=== PATIENT | female | born 1975 | race Caucasian/White ===

== ENCOUNTER 2024-05-23 08:36 | Outpatient (AMB) | payer OTHER, SELFPAY ==
--- NOTE | 2024-05-23 08:40 | A.OFFPC_ITS ---
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 Static Balancer Required: No Is last menstrual period known: Yes Last menstrual period: 03/13/24 Post menopausal: No Patient : No Allergies No Known Allergies Allergy (Verified 05/23/24 09:01) Medication List - Last Reconciled 05/23/24 by Deuce Dey CNP No Known Home Meds Tobacco use date assessed: 05/23/24 Dental Screening Dental Screen Date: 05/23/24 Did you have a dental visit in the last 12 months?: Yes Did you have a dental problem in the last 6 months where you did not have access to dental care?: No Was dental information given to patient?: Patient has dentist HPI HPI Comments History of Present Illness Details New patient Prior PCP:?Shanice Romo Last office visit/CPE: About 3 years Acute issue(s): Hyperopia -Corrected with reading glasses She is not on prescription medications Her anxiety has been controlled; she has never been on psychotropic medications. She generally eats and sleeps well. No routine exercise PMHx: Anxiety, IBS, diminished left hearing SurgHx: None FHx: Mom: DM, anxiety. Sister: colon cancer SocHx: Nonsmoker. Drink 3-4 beers/ciders on weekends. No recreational drugs Last eye exam was a month ago at [facility]. She will sign a release for her PCP to obtain record Last mammogram was about 5 years ago Last pap smear test was about 8 years ago Last colonoscopy was 10 years ago Last tetanus vaccine was about 10 years ago [facility] Medical History (Updated 05/23/24 @ 09:37 by Deuce Dey CNP) HPV (human papilloma virus) anogenital infection Anxiety History of IBS Family History (Updated 05/23/24 @ 08:55 by Soraya Miles) Mother Diabetes Family/Other Colon cancer Social History Housing: Apartment Patient Tobacco Use Status: Never used Tobacco e-Cigarette/Vaping Use: Never Used Second Hand Smoke Exposure: No service: No Current occupational status: employed 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 1. Little interest or pleasure in doing things: not at all 2. Feeling down, depressed, or hopeless: not at all 3. Trouble falling or staying asleep, or sleeping too much: not at all 4. Feeling tired or having little energy: nearly every day 5. Poor appetite or overeating: not at all 6. Feeling bad about yourself - or that you are a failure or have let yourself or your family down: several days 7. Trouble concentrating on things, such as reading the newspaper or watching television: not at all 8. Moving or speaking so slowly that other people could have noticed. Or the opposite - being so fidgety or restless that you have been moving around a lot more than usual: not at all 9. Thoughts that you would be better off or of hurting yourself in some way: not at all Total score: 4 Depression Screening Interpretation: Negative Depression Screening Done: Yes 50927 - PHQ-9 Billing: Yes Source: Developed by Drs. Chad Valerio, Michelle Sanches, Scotty Means and colleagues, with an educational avril from [employer]. Thrive Questionnaire Date Thrive assessed: 05/23/24 I am a: Patient What is your living situation today?: I have a steady place to live Within the past 12 months, did the food you bought not last and you didn't have the money to get more?: Sometimes True Within the past 12 months, did you worry whether your food would run out before you got money to buy more?: Sometimes True Do you have trouble paying for medicines?: No Do you have trouble getting transportation to medical appointments?: No Do you have trouble paying your heating and electricity bill?: No Do you have trouble taking care of your child, family member or friend?: No Do you have trouble with day-to-day activities such as bathing, preparing meals, shopping, managing finances, etc.?: No Are you currently unemployed and looking for a job?: No Are you interested in more education?: No Please select the resources that you would like help with: None Currently or been in a relationship where the following occur: No concerns reported THRIVE Score: 2 AUDIT C Alcohol Use Questionnaire (AUDIT-C) 1. How often do you have a drink containing alcohol?: 2-3 times a week 2. How many drinks containing alcohol do you have on a typical day when you are drinking?: 1 or 2 3. How often do you have six or more drinks on one occasion?: Never Total Score: 3 Score Reviewed/Action Taken: Yes FRANCISCO-7 AMB Questionnaire FRANCISCO-7 Date FRANCISCO - 7 assessed: 05/23/24 Feeling nervous, anxious, or on edge: 1 = Several days Not being able to stop or control worryin = Several days Worrying too much about different things: 1 = Several days Trouble relaxin = Not at all Being so restless that it is hard to sit still: 0 = Not at all Becoming easily annoyed or irritable: 0 = Not at all Feeling afraid as if something awful might happen: 0 = Not at all Total FRANCISCO-7 score (0-4 normal; 5-9 mild; 10-14 moderate; 15-21 severe): 3 Source: Developed by Drs. Chad Valerio, Michelle Sanches, Scotty Means and colleagues, with an educational avril from [employer]. FRANCISCO-7 Assessment Billing FRANCISCO-7 Assessment Tool: FRANCISCO-7 Assessment 79486 Review of Systems Const Details: Denies chills, Denies fatigue, Denies fever(s), Denies headache(s) and Denies weakness HEENT Denies change in vision, Denies dizziness, Denies headache(s), Denies hearing loss, Denies nasal congestion, Denies sinus pain, Denies sinus pressure and Denies sore throat Card Denies chest pain, Denies lightheadedness, Denies dyspnea and Denies other (palpitations) Resp Denies cough, Denies dyspnea and Denies wheezing GI Denies abdominal pain, Denies melena, Denies hematochezia, Denies change in bowel habits, Denies dyspepsia and Denies nausea Denies hematuria and Denies dysuria Musc Denies abnormal gait, Denies myalgias, Denies arthralgias, Denies numbness and Denies tingling Skin/Breast Denies rash, Denies unusual bruising and Denies wounds Neuro Denies abnormal gait, Denies dizziness, Denies headache(s), Denies memory loss, Denies numbness, Denies Sensory deficit (Neuro), Denies tingling and Denies weakness Psych Denies anxiety, Denies depression and Denies memory loss Endo Denies cold intolerance, Denies fatigue, Denies heat intolerance, Denies polydipsia and Denies polyuria Humphrey/Lymph Denies easy bleeding and Denies easy bruising Aller/Immun Denies wheezing Physical exam (Primary Care) Vital Signs: Last Vital Signs Temp 97.1 F 05/23/24 08:46 Pulse 71 05/23/24 08:46 Resp 16 05/23/24 08:46 BP 112/70 05/23/24 08:46 Pulse Ox 99 05/23/24 08:46 Oxygen Delivery Method Room Air 05/23/24 08:46 BMI result Body Mass Index 23.8 Tobacco/Smoking Status: Tobacco use Status Tobacco use date assessed 05/23/24 05/23/24 08:46 Patient Tobacco Use Status Never used Tobacco 05/23/24 08:46 e-Cigarette/Vaping Use Never Used 05/23/24 08:46 PHQ-9: PHQ-9 Score PHQ-9: Total score 4 05/23/24 09:06 Depression Screening Interpretation: Negative Thrive Assessment: Date of Thrive Assessment Date Thrive assessed 05/23/24 05/23/24 08:58 Currently or been in a relationship where the following occur: No concerns reported Const Other: General: no acute distress, well developed, alert and awake Nutritional Appearance: well nourished Orientation/consciousness: patient oriented x3 HENMT Head: Yes normocephalic and Yes atraumatic Ears: hearing grossly normal bilaterally and TM's normal bilaterally General nose exam: Normal external nose present and Normal nares present Mouth: Normal oral and palatal mucosa present and moist mucous membranes Teeth and gingiva: dentition normal Throat: Yes oropharynx normal Eyes Pupils: Equal, round and reactive pupils present and Pupil accommodation reflex normal EOM: EOMs intact bilaterally Neck Neck: Yes normal visual inspection, Yes no lymphadenopathy and Yes trachea midline Thyroid: Thyroid normal Carotids: no bruits Lymphatic: no lymphadenopathy noted Chest Chest palpation & inspection: normal inspection of the chest Resp Effort & Inspection: normal respiratory effort Auscultation: clear to auscultation bilaterally Cardio Rate: regular rate Rhythm: regular rhythm Heart sounds: S1 normal heart sound present, S2 normal heart sound present, no gallops, no murmurs and no rubs Bruits: no abdominal aortic bruits and no carotid bruits GI Palpation (GI): No Abdominal aortic bruit present, Soft to palpation, nontender, No hepatosplenomegaly present and No Rebound tenderness present Auscultation: normal bowel sounds General: Yes no CVA tenderness Back/Spine/Pelvis Back: no CVA tenderness Cervical Spine: cervical ROM normal and No Cervical spine tenderness Thoracic/Lumbar Spine: thoraco-lumbar ROM normal, No pain with thoraco-lumbar ROM, No thoracic spinal tenderness and No lumbar spinal tenderness Skin General: warm and dry. Normal skin color. Normal skin turgor Lesions: no lesions Rashes: no rashes Trauma: no lacerations or abrasions Wounds: no wounds Nails: normal Neuro General: patient oriented x3, gait normal and CN's II-XI intact bilaterally Cranial nerves: Yes Equal, round and reactive pupils present Cognition (Neuro): normal cognition Gait exam (Neuro): Normal gait present Motor exam (neuro): 5/5 motor strength present throughout Sensory Exam: No Sensory deficit (Neuro) Deep tendon reflexes (DTR's): Right patellar reflex intensity grade: 2+ and Left patellar reflex intensity grade: 2+ Extrem General: Yes normal to inspection, No edema and No calf tenderness Psych Appearance: grossly normal Affect: normal affect Attitude: cooperative Thought process: Normal thought process present Immunizations Boostrix Tdap 2.5 Lf unit-8 mcg-5 Lf/0.5 mL intramuscular syringe Performing Provider: Deuce Dey CNP Performing Location: [facility] Administered by: Leslie Casanova RN on 05/23/24 09:39 Dose Route Admin Location Dispensed Lot Number Expiration Date [facility] Rink Rat 0.5 mL IM Right Deltoid 0.5 mL [id number] 06/05/26 [id number] [employer] VIS Given Date VIS Provided VIS Publication Date 05/23/24 Single Vaccine 21 Eligibility Eligibility Date Funding Source Not [facility] Eligible 05/23/24 Private Assessment and Plan Assessment & Plan (1) Normal physical examination, routine: Code(s): Z00.00 - Encounter for general adult medical examination without abnormal findings Plan: No significant physical restrictions or limitations noted Healthy diet and routine exercise encouraged Advised to get lab work done and follow-up for telehealth visit in 2-3 weeks for labs review Return with symptoms or concerns Verbalized understanding and agreed with the treatment plan (2) Anxiety: Code(s): F41.9 - Anxiety disorder, unspecified Plan: Controlled Never been on psychotropic medications (3) History of IBS: Code(s): Z87.19 - Personal history of other diseases of the digestive system Plan: Controlled (4) Pap smear for cervical cancer screening: Code(s): Z12.4 - Encounter for screening for malignant neoplasm of cervix Plan: Last pap smear test was about 8 year 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 (5) Breast cancer screening by mammogram: Code(s): Z12.31 - Encounter for screening mammogram for malignant neoplasm of breast Plan: Last mammogram was about 5 years ago Mammogram ordered (6) Colon cancer screening: Code(s): Z12.11 - Encounter for screening for malignant neoplasm of colon Plan: Last colonoscopy was 10 years ago Referred to [facility] gastroenterology for a colonoscopy (7) Vaccine for tetanus toxoid: Code(s): Z23 - Encounter for immunization Plan: Last tetanus vaccine was about 10 years ago Tetanus vaccine administered by the nurse today (8) Laboratory tests ordered as part of a complete physical exam (CPE): Code(s): Z00.00 - Encounter for general adult medical examination without abnormal findings Plan: Fasting labs ordered as part of a complete physical exam. Advised to fast for at least 10 hours before getting labs drawn. May drink water Verbalized understanding and agreed with treatment plan. Orders: Orders Complete Blood Count Auto Diff Today Z00.00 - Encounter for general adult medical examination without abnormal findings Comprehensive [place]. Panel Fast Today Z00.00 - Encounter for general adult medical examination without abnormal findings TSH reflex Free T4 Today Z00.00 - Encounter for general adult medical examination without abnormal findings UA CC w/rflx Micro + Cult Today Z00.00 - Encounter for general adult medical examination without abnormal findings MM screening mammo BI Today Z12.31 - Encounter for screening mammogram for malignant neoplasm of breast Lipid Panel Today Z00.00 - Encounter for general adult medical examination without abnormal findings Microalbumin, Random (w Creat) Today Z00.00 - Encounter for general adult medical examination without abnormal findings Referrals REFERENCE DATA EXPERT Referral Z12.11 - Encounter for screening for malignant neoplasm of colon Gastroenterology Referral Z12.11 - Encounter for screening for malignant neoplasm of colon Coding Level of Care Code New Pt Prev Care 40-64y(66337) Diagnoses Normal physical examination, routine Z00.00 Anxiety F41.9 History of IBS Z87.19 Pap smear for cervical cancer screening Z12.4 Breast cancer screening by mammogram Z12.31 Colon cancer screening Z12.11 Vaccine for tetanus toxoid Z23 Laboratory tests ordered as part of a complete physical exam (CPE) Z00.00 Additional Codes FRANCISCO-7 Assessment Billing - FRANCISCO-7 Assessment Tool: FRANCISCO-7 Assessment 47501 ([id number])
[2024-05-23 08:46] VITALS: BP 112/70; PULSE 71; RESP 16; TEMP 36.2; O2SAT 99; BMI 23.8
== END 2024-05-23 09:37 | disposition home or self-care (01) ==
PROVIDERS: Visit Provider Nurse Practitioner Family
DX: Z00.00 Encounter for general adult medical examination without abnormal findings (principal); F41.9 Anxiety disorder, unspecified; Z87.19 Personal history of other diseases of the digestive system; Z12.4 Encounter for screening for malignant neoplasm of cervix; Z12.31 Encounter for screening mammogram for malignant neoplasm of breast; Z12.11 Encounter for screening for malignant neoplasm of colon; Z23 Encounter for immunization

== ENCOUNTER → 2024-05-23 08:36 | Outpatient (BNVA) | payer OTHER, SELFPAY | PROVIDERS: Visit Provider Nurse Practitioner Family | DX: Z00.01 Encounter for general adult medical examination with abnormal findings (principal); Z23 Encounter for immunization; F41.9 Anxiety disorder, unspecified; Z87.19 Personal history of other diseases of the digestive system | CPT/HCPCS: 90471; 90715; 96127; 99386 ==

== ENCOUNTER 2024-05-28 07:51 | Outpatient (REF) | payer OTHER, SELFPAY ==
[2024-05-28 10:59] LABS: MANUAL DIFF FLAG NO
[2024-05-28 11:12] LABS: Appearance Urine Clear; Color Urine Yellow; Glucose Urine UA Negative (Negative); Leukocyte Esterase Urine Negative (Negative); Nitrite Urine Negative (Negative); Urine Blood Negative (Negative); Urine Ketones Negative (Negative); Urine Protein Negative (Neg-Trace)
[2024-05-28 11:22] LABS: Basophils Percent Auto 0.6 % (0-2); Eosinophils Absolute Auto 0.1 X10*3/uL (0.0-0.4); Eosinophils Percent Auto 2.3 % (0-4); Hematocrit 37.4 % (37.0-47.0); Hemoglobin 12.4 g/dl (12.0-16.0); Lymphocytes Absolute Auto 1.3 X10*3/uL (1.2-4.9); Lymphocytes Percent Auto 25.4 % (20-40); Mean Corpuscular HGB Conc 33.2 g/dl (31.0-35.0); Mean Corpuscular Hemoglobin 30.2 pg (27.0-33.0); Mean Platelet Volume 9.6 fL (9.4-12.3); Monocytes Absolute Auto 0.4 X10*3/uL (0.1-1.2); Monocytes Percent Auto 7.9 % (2-11); Neutrophils Absolute Auto 3.3 x10*3/uL (2.0-8.3); Neutrophils Percent Auto 63.8 % (45-73); Platelet Count 377 X10*3/uL (160-400); Red Blood Count 4.11 X10*6/uL (4.20-5.50); Red Cell Distribution Width 11.8 % (11.0-16.0); White Blood Count 5.2 X10*3/uL (4.8-10.8)
[2024-05-28 11:28] LABS: Alanine Aminotransferase 33 U/L (0-31); Albumin Level 4.1 g/dL (3.5-5.0); Alkaline Phosphatase 90 U/L (39-117); Anion Gap 13 (12-20); Aspartate Amino Transferase 24 U/L (5-31); Bilirubin Total 0.4 mg/dL (0.0-1.0); Blood Urea Nitrogen 9 mg/dL (9-16); Calcium 9.6 mg/dL (8.4-10.2); Carbon Dioxide 26 mmol/L (22-29); Chloride 105 mmol/L (96-108); Cholesterol 141 mg/dL (<200); Estimated Glomerular Filt Rate > 60; Glucose Fasting 86 mg/dL (60-99); HDL Cholesterol 42 mg/dL (>40); LDL Cholesterol Calculated 71 mg/dL (<100); Potassium 3.9 mmol/L (3.3-5.1); Sodium 140 mmol/L (135-145); Total Protein 7.1 g/dL (6.5-8.0); Triglycerides 141 mg/dL (<150)
[2024-05-28 11:48] LABS: Creatinine Urine 119.08 mg/dL
[2024-05-28 11:49] LABS: TSH reflex Free T4 1.18 uIU/mL (0.32-4.0)
== END 2024-05-28 07:52 | disposition home or self-care (01) ==
LOC: HO.WFDLDS 07:51
PROVIDERS: Visit Provider Nurse Practitioner Family
DX: Z00.00 Encounter for general adult medical examination without abnormal findings (principal)
CPT/HCPCS: 36415; 80053; 80061; 81003; 82043; 82570; 84443; 85025

== ENCOUNTER 2024-07-23 14:46 | Outpatient (REF) | payer OTHER, SELFPAY ==
[2024-07-24 04:11] LABS: CT PCR NOT DETECTED (Not Detect.); NG PCR NOT DETECTED (Not Detect.)
[2024-07-24 08:12] LABS: Bacterial Vaginosis PCR POSITIVE (Negative); Candida Group PCR NOT DETECTED (Not Detect); Candida glab krusei PCR NOT DETECTED (Not Detect); Trichomonas vaginalis PCR NOT DETECTED (Not Detect)
[2024-07-24 11:05] LABS: HPV 16,18/45 See PAP report
== END 2024-07-23 14:47 | disposition home or self-care (01) ==
LOC: HO.LAB 14:46
PROVIDERS: PCP Nurse Practitioner Family; Visit Provider Advanced Practice Midwife
DX: Z01.419 Encounter for gynecological examination (general) (routine) without abnormal findings (principal); N89.8 Other specified noninflammatory disorders of vagina; Z20.2 Contact with and (suspected) exposure to infections with a predominantly sexual mode of transmission
CPT/HCPCS: 0352U; 87491; 87591; 87624; 88175; 99386

== ENCOUNTER 2024-07-23 14:46 | Outpatient (AMB) | payer OTHER, SELFPAY ==
[2024-07-23 15:05] VITALS: BP 118/70; BMI 24.2
--- NOTE | 2024-07-23 15:05 | A.OFFVIS_ITS ---
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 She used to have normal regular periods but since the summer of the [facility] on February 28 she had a period that started and she bled until the beginning of March so at least a month and then she had normal cycles after that and then June 09 she started bleeding very lightly and it gradually kind of increased until a couple of weeks ago when it is kind of heavy for couple of weeks and now it is tapering away now. She is sexually active with her boyfriend and he has had a vasectomy so she does not to worry about control. She has no particular worries about infection. 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 She does not think there is been any major fluctuations in her weight all her life she is 4 ft 10 about 116 today and that is her normal. She has no history of increased facial hair or acne and no history abnormal menses before this when she was much younger her periods were very heavy and painful to her and she went on control pills for a while but she says her experience of them was not good and she did not like how she felt on and she stopped. 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 Current occupational exposures/hazards: No Cognitive needs: No Hearing needs: No Vision needs: Yes Female Reproductive History Menstrual Age of Menarche: 11 Duration of menses: other Date of last menstrual period: 06/03/24 (45 days) control method: none Total pregnancies: 0 History of abnormal pap smear: Yes (2015) Physical Exam Vital Signs: Last Vital Signs BP 118/70 07/23/24 15:05 BMI result Body Mass Index 24.2 Const General: healthy appearing, comfortable, no acute distress, well developed and alert Nutritional Appearance: average body habitus Orientation/consciousness: patient oriented x3 Limitations: no limitations HEENT Head: Yes normocephalic Neck Neck: Yes normal visual inspection Chest Chest palpation & inspection: normal inspection of the chest Breast/axilla inspection: normal inspection of the breasts and normal inspection of the axillae Breast/axilla palpation: normal palpation of the breasts and normal palpation of the axillae Resp Effort & Inspection: normal respiratory effort GI Inspection: Yes normal to inspection, No Abdominal wall edema and No distended Palpation (GI): Soft to palpation and nontender Other: External exam within limits there is a light brown discharge consistent with end of menses cervix is nulliparous pink smooth healthy appearing and tightly closed, mobile, nontender uterus feels bulky and slightly enlarged, and is mobile and nontender. Adnexa nontender very good tone with Kegel.. General: Yes bladder normal to palpation External Female Exam: normal external appearance and normal appearance of the urethra Speculum Exam - Vagina: normal appearance of the vagina, normal palpation and normal vaginal discharge Speculum Exam - Cervix: normal appearance of the cervix, normal palpation and nontender Bimanual exam- vagina & uterus: normal bimanual exam, normal palpation, uterine size normal, bladder normal to palpation, consistency normal, normal palpation, uterine mobility normal, uterine shape normal, No Cervical tenderness present, non-tender and no cervical motion tenderness Bimanual Exam- Adnexa, other: normal adnexae, no masses, normal and No adnexal tenderness Neuro General: patient oriented x3 Assessment & Plan Assessment & Plan (1) Pap smear for cervical cancer screening: Code(s): Z12.4 - Encounter for screening for malignant neoplasm of cervix Category: Medical (2) Breast cancer screening by mammogram: Code(s): Z12.31 - Encounter for screening mammogram for malignant neoplasm of breast Category: Medical (3) Abnormal uterine bleeding (AUB): Code(s): N93.9 - Abnormal uterine and vaginal bleeding, unspecified Category: Medical (4) Perimenopause: Code(s): N95.1 - Menopausal and female climacteric states Category: Medical (5) Bulky or enlarged uterus: Code(s): N85.2 - Hypertrophy of uterus Category: Medical (6) Encounter for screening examination for sexually transmitted disease: Code(s): Z11.3 - Encounter for screening for infections with a predominantly sexual mode of transmission Category: Medical Plan -----Discussed in this visit the following: healthy balanced diet, regular and consistent exercise, getting recommended health screens, doing the best she can for her particular health concerns, kegel exercises, pap smear screening and followup recommendations, mammography screening and SBE, normal changes in cycles in her life stage--- . She had her mammogram done last month through a [facility] site in [place]. Discussed workup for her abnormal bleeding pattern and then it does need to be investigated start with a pelvic ultrasound and depending on those findings plan for an endometrial biopsy at the visit when she comes to review the ultrasound review that there is a delay in how quickly ultrasounds get read these days . I did warn her that it would be crampy experience and to bring ibuprofen with her. She uses ibuprofen and pads for her periods. I did also review the range of possibilities for some abnormal findings and that if it were deemed that her care and evaluation would be better suited in a tertiary institution such as [facility] would refer her await the ultrasound 1st additionally if her cervix is some tied I am unable to get through her cervix to do the endometrial biopsy then refer her additionally as well. As she has no markers for any other abnormal hormonal findings I did not see a need to do extra testing today she had recent testing via her primary care provider and all the levels were within the normal range for the most part as applicable to export agent evaluation including her thyroid. Orders: Orders US pelvic and transvaginal Today N85.2 - Hypertrophy of uterus, N93.9 - Abnormal uterine and vaginal bleeding, unspecified, N95.1 - Menopausal and female climacteric states, Z11.3 - Encounter for screening for infections with a predominantly sexual mode of transmission, Z12.31 - Encounter for screening mammogram for malignant neoplasm of breast, Z12.4 - Encounter for screening for malignant neoplasm of cervix Coding Level of Care Code New Pt Prev Care 40-64y(47214) Diagnoses Pap smear for cervical cancer screening Z12.4 Breast cancer screening by mammogram Z12.31 Abnormal uterine bleeding (AUB) N93.9 Perimenopause N95.1 Bulky or enlarged uterus N85.2 Encounter for screening examination for sexually transmitted disease Z11.3
== END 2024-07-23 15:53 | disposition home or self-care (01) ==
PROVIDERS: PCP Nurse Practitioner Family; Visit Provider Advanced Practice Midwife
DX: Z01.419 Encounter for gynecological examination (general) (routine) without abnormal findings (principal); Z12.31 Encounter for screening mammogram for malignant neoplasm of breast; N93.9 Abnormal uterine and vaginal bleeding, unspecified; N95.1 Menopausal and female climacteric states; N85.2 Hypertrophy of uterus; Z11.3 Encounter for screening for infections with a predominantly sexual mode of transmission
CPT/HCPCS: 99386

== ENCOUNTER 2024-08-01 16:07 | Outpatient (REF) | payer OTHER, SELFPAY | END 2024-08-01 16:08 | disposition home or self-care (01) | LOC: HO.US 16:07 | PROVIDERS: PCP Nurse Practitioner Family; Visit Provider Advanced Practice Midwife | DX: N95.1 Menopausal and female climacteric states (principal); N85.2 Hypertrophy of uterus; N93.9 Abnormal uterine and vaginal bleeding, unspecified | CPT/HCPCS: 76830; 76856 ==

== ENCOUNTER 2024-09-26 10:33 | Outpatient (AMB) | payer OTHER, SELFPAY ==
[2024-09-26 10:46] VITALS: BP 112/68; BMI 24.2
--- NOTE | 2024-09-26 10:46 | A.OFFVIS_ITS ---
Vital Signs 09/26/24 10:46 Height 4 ft 10 in Weight 116 lb BMI 24.2 BP 112/68 Intake Visit Reasons: US follow up Engraver Machine Required: No Engraver Machine Services: Engraver Machine Present Information Interpreted: clinical only Ash Worker: Ash Worker Present Allergies No Known Allergies Allergy (Verified 09/26/24 10:49) Medication List - Last Reconciled 09/26/24 by Lisbeth Boyer CNM No Known Home Meds Is last menstrual period known: Yes Last menstrual period: 09/14/24 HPI HPI US follow up: Details: Patient is here for ultrasound review. She had had a normal. In March and April and then in May she bled for 2 days on June 03 and and then she bled heavy from June 09 until July 27 which was 40 something days or more. She had seen me on July 23 and an ultrasound was planned she had had blood work done by her primary care provider in May and was not anemic and had a normal thyroid level at that time.. She had a normal period In July from August 15 to . She had a normal period in August from in . 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 Current occupational exposures/hazards: No Cognitive needs: No Hearing needs: No Vision needs: Yes Female Reproductive History Menstrual Age of Menarche: 11 Date of last menstrual period: 09/14/24 control method: none Total pregnancies: 0 Date of last pap smear: 07/24/24 (negative) Physical Exam Vital Signs: Last Vital Signs BP 112/68 09/26/24 10:46 BMI result Body Mass Index 24.2 Results Reviewed Results Reviewed: Patient: Aminata Coleman MR#: [id number] : 1975 Acct:[id number] Age/Sex: 48 / F ADM Date: 08/01/24 Loc: HO.US Attending Dr: Lisbeth Boyer CNM Ordering Physician: Lisbeth Boyer CNM Date of Service: 08/01/24 Procedure(s): US pelvic and transvaginal Accession Number(s): [id number] cc: Lisbeth Boyer CNM; Deuce Dey SHAPER SETTER~ EXAMINATION: US PELVIS CLINICAL INFORMATION: Encounter for screening for malignant neoplasm, last menstrual period mid June 20 lasted 45 days. COMPARISON: None available. TECHNIQUE: Ultrasound of the pelvis is performed using both transabdominal and transvaginal transducers along with Doppler. Transvaginal imaging is performed due to inadequate visualization transabdominally. FINDINGS: The anteverted uterus measures 8.0 x 3.7 x 5.0 cm. Nabothian cysts in the cervix. Endometrial thickness is 7 mm. Right ovary measures 2.1 x 1.3 x 1.4 cm, volume 2.0 mL. A 0.4 cm echogenic focus in the right ovary is characteristic of calcification with multiple additional smaller echogenic foci. Left ovary measures 3.2 x 2.1 x 2.0 cm, volume 5.4 mL. 1.5 cm left ovarian cyst is likely simple. Tiny echogenic foci within the left ovary are characteristic of small calcifications. A 0.9 cm complex left ovarian cyst with diffuse low-level echoes. Visualization of the bilateral kidneys is limited due to bowel gas. US/US pelvic and transvaginal IMPRESSION: 1. Endometrial thickness is 7 mm. 2. Multiple small bilateral ovarian calcifications. A 0.9 cm complex left ovarian cyst. 1.5 cm simple left ovarian cyst. Correlation with clinical exam recommended to determine further management. Electronically signed by: Evangelina Cartwright MD 09/15/2024 11:57 AM [facility] Dictated By: Evangelina Cartwright MD Signed By: <Electronically signed by Evangelina Cartwright MD in OV> 09/15/24 1157 DD/ 1635 TD/TT: 08/01/24 1655 Informatics Nurse Specialist: Also reviewed previous labs done in may. Assessment & Plan Assessment & Plan (1) Abnormal uterine bleeding (AUB): Comment: We will proceed to endometrial biopsy.. Code(s): N93.9 - Abnormal uterine and vaginal bleeding, unspecified Category: Medical (2) Ovarian cyst, complex: Comment: repeat ultrasound, if it persists investigate further. Code(s): N83.299 - Other ovarian cyst, unspecified side Category: Medical Plan Patient is here for ultrasound review. She had had a normal. In March and April and then in May she bled for 2 days on June 03 and and then she bled heavy from June 09 until July 27 which was 40 something days or more. She had seen me on July 23 and an ultrasound was planned she had had blood work done by her primary care provider in May and was not anemic and had a normal thyroid level at that time.. She had a normal period In July from August 15 to . She had a normal period in August from in . Discussed her pattern of abnormal bleeding and the usual evaluation for it. D iscussed the importance of ruling out any abnormal cells in her endometrium that are contributing to this. Discussed the ways of evaluating it, including pelvic ultrasound if appropriate, and an endometrial biopsy if appropriate. Also discussed the common causes of abnormal bleeding, including cancerous or precancerous cells, endometrial hyperplasia, anovulatory cycles, fibroids, and other potential causes. Discussed evaluation methods including endometrial biopsy to check the cells in the endometrial cavity,(repeat pelvic ultrasound to assess for persistency of the complex cyst) and any lab work if appropriate.-in her case just a CBC to assess for change from May. She is having normal periods the last 2 months and her partner has a vasectomy. Also discussed possible treatment to deal with the abnormal bleeding which may include medications, depending on age and other factors, In certain cases there may be other treatment plans discussed as well. Discussed that if there are o ther abnormalities found for instance any cancer cells within endometrial biopsy or persistence of the complex cyst then we will have to investigate further and there would be further testing and evaluation discussed. next steps- repeat u/s, and also endometrial biopsy, then f/u. Patient is in agreement with the plan. ----- Timeframe/Date Comment embx within 2w, u/s within 2w, then f/u after both of the following. labs Orders: Orders US pelvic and transvaginal Today N83.299 - Other ovarian cyst, unspecified side, N93.9 - Abnormal uterine and vaginal bleeding, unspecified Complete Blood Count no Diff Today N93.9 - Abnormal uterine and vaginal bleeding, unspecified Coding Level of Care Code Est Pt Level 3 (91548) Diagnoses Abnormal uterine bleeding (AUB) N93.9 Ovarian cyst, complex N83.299
--- OUTSIDE RECORDS SUMMARY | 2024-09-26 14:10 | XMS_ITS | Clinical Summary ---
Author Organization [employer] Address [address] [facility] [address] [place] [address] Care Team Providers Care Vision Teacher Name Role Phone Yon Prasad Primary Care Provider [phone] Allergies No known active allergies Medications No known medications Family History Medical History Relation Name Comments Cataracts Father Relation Name Status Comments Father Social History Tobacco Use Types Packs/Day Years Used Date Smoking Tobacco: Never Tobacco Cessation:Counseling Given: Not Answered Comments Unknown Sex and Gender Information Value Date Recorded Sex Assigned at Female 04/11/2024 12:13 PM EDT Legal Sex Female 12:07 PM EDT Gender Identity Female 04/11/2024 12:13 PM EDT Sexual Orientation Straight 04/11/2024 12 :13 PM EDT Last Filed Vital Signs Vital Sign Reading Time Taken Comments Blood Pressure - - Pulse - - Temperature 36.2 ??C (97.2 ??F) 04/30/2024 8:33 AM ED T Respiratory Rate - - Oxygen Saturation - - Inhaled Oxygen Concentration - - Weight - - Height - - Body Mass Index - - Plan of Treatment Health Maintenance Due Date Last Done Comments CT Colonography 1975 Colonoscopy 1977 Colorectal Cancer Screening 1975 Depression Screening 1975 FIT DNA/Cologuard 1975 FIT 1977 FOBT 1975 HIV Screening 1975 SDOH Screening 1975 Sigmoidoscopy 1977 Alcohol/Substance Use Screening 1989 Family Planning (PISQ) 1992 Hepatitis C Screening 12/04/1995 DTaP/Tdap/Td Vaccines (1 - Tdap) 1996 Hepatitis B Vaccines (1 of 3 - 19+ 3-dose series) 1996 Pap Smear 1998 Cervical Cancer Screening 12/04/2007 HPV/Cotest 12/04/2007 Mammogram 2017 COVID-19 Vaccine ( - 2023-2 5 season) 2024 Influenza Vaccine (#1) 2024 Tobacco Screening 04/30/2025 04/30/2024 Zoster Vaccines (1 of 2) 12/04/2027 RSV Patients and Pa tients Aged 60 years or older (1 - 1-dose 75+ series) 2052 HIB Vaccines Aged Out No longer eligi ble based on patient's age to complete this topic HPV Vaccines Aged Out No longer eligi ble based on patient's age to complete this topic Hepatitis A Vaccines Aged Out No long er eligible based on patient's age to complete this topic IPV Vaccines Aged Out No longer eligi ble based on patient's age to complete this topic Meningococcal Vaccine Aged Out No windy fany eligible based on patient's age to complete this topic Pneumococcal Vaccine: Pediat rics (0 to 5 Years) and At-Risk Patients (6 to 49) Years) Aged Out No longer elig ible based on patient's age to complete this topic RSV under 20 months Aged Out No longe r eligible based on patient's age to complete this topic Rotavirus Vaccines Aged Out No longer eligible based on patient's age to complete this topic Insurance EYE MED [facility] D[facility] PLAN [facility] G[facility] Care Teams Vision Teacher Relationship Specialty Start Date End Date Osmar, Kartik [address] [place], [place] [id number] PCP - General 04/11/24
== END 2024-09-26 11:44 | disposition home or self-care (01) ==
PROVIDERS: PCP Nurse Practitioner Family; Visit Provider Advanced Practice Midwife
DX: N93.9 Abnormal uterine and vaginal bleeding, unspecified (principal); N83.299 Other ovarian cyst, unspecified side
CPT/HCPCS: 99213

== ENCOUNTER → 2024-09-26 10:33 | Outpatient (BNVA) | payer OTHER, SELFPAY | PROVIDERS: PCP Nurse Practitioner Family; Visit Provider Advanced Practice Midwife | DX: N93.9 Abnormal uterine and vaginal bleeding, unspecified (principal); N83.299 Other ovarian cyst, unspecified side | CPT/HCPCS: 99212 ==

== ENCOUNTER 2024-10-04 14:15 | Outpatient (REF) | payer OTHER, SELFPAY | END 2024-10-04 14:16 | disposition home or self-care (01) | LOC: HO.US 14:15 | PROVIDERS: PCP Nurse Practitioner Family; Visit Provider Advanced Practice Midwife | DX: N83.299 Other ovarian cyst, unspecified side (principal); N93.9 Abnormal uterine and vaginal bleeding, unspecified | CPT/HCPCS: 76830; 76856 ==

== ENCOUNTER → 2024-10-04 14:17 | Outpatient (BNV) | payer OTHER, SELFPAY | PROVIDERS: PCP Nurse Practitioner Family; Visit Provider Specialist | DX: D25.9 Leiomyoma of uterus, unspecified (principal); N93.9 Abnormal uterine and vaginal bleeding, unspecified | CPT/HCPCS: 76830; 76856 ==

== ENCOUNTER 2024-10-10 13:03 | Outpatient (AMB) | payer OTHER, SELFPAY ==
--- NOTE | 2024-10-10 13:06 | A.OFFVIS_ITS ---
Vital Signs 10/10/24 13:07 Height 4 ft 10 in Weight 116 lb BMI 24.2 BP 122/70 Intake Visit Reasons: EMB Intake Note: Patient refused PT. Statue Carver Required: No Statue Carver Services: Statue Carver Present Information Interpreted: clinical only Program Director Substance Abuse: Program Director Substance Abuse Present Allergies No Known Allergies Allergy (Verified 10/10/24 13:08) Medication List - Last Reconciled 10/10/24 by Lisbeth Boyer CNM No Known Home Meds Is last menstrual period known: Yes Last menstrual period: 09/14/24 HPI HPI EMB: Details: For an endometrial biopsy. We have discussed this plan before. She has generally regular periods but she had very very. May and workup was initiated after that. She had an ultrasound which had some findings for which we ordered a repeat follow-up ultrasound and that has been done last week and those results are back. So today we are reviewing all of these findings and proceeding to the endometrial biopsy as planned her last menstrual period was September 14. 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 Current occupational exposures/hazards: No Cognitive needs: No Hearing needs: No Vision needs: Yes Female Reproductive History Menstrual Age of Menarche: 11 Duration of menses: 3-5 days Date of last menstrual period: 09/14/24 control method: none Total pregnancies: 0 Full term: 0 Date of last pap smear: 07/24/24 (negative) Physical Exam Vital Signs: Last Vital Signs BP 122/70 10/10/24 13:07 BMI result Body Mass Index 24.2 External Female Exam: normal external appearance Speculum Exam - Vagina: normal appearance of the vagina and normal vaginal discharge Speculum Exam - Cervix: normal appearance of the cervix Bimanual exam- vagina & uterus: normal bimanual exam, uterine size normal, consistency normal, uterine mobility normal, uterine shape normal and non-tender Bimanual Exam- Adnexa, other: normal adnexae, no masses and No adnexal tenderness Office Procedures Endometrial Biopsy Details: Patient is here for an endometrial biopsy. I explained the procedure and what the goal of the obtaining the sample is, and why we need need to do it today. Patient signed consent form, and appropriate testing was done beforehand. test was refused. Patient's long-term partner had a vasectomy many many years ago and she has never ever ever had a scare. Patient was placed in recumbent position. Bimanual exam was done to establish orientation of cervix and uterus. Speculum was placed to visualize cervix. the cervix was cleansed with Betadine. A tenaculum was gently placed to straighten the axis. The uterus was sounded to 7.5cm. The endometrial biopsy Pipelle was inserted gently, and withdrawn to obtain sampling of the endometrial tissue for 4 passes. The tenaculum was removed and the cervix was swabbed gently as any bleeding subsided. the patient sat up after removal of the speculum. She is to return for discussion of the results and review of any other testing. [id number] Biopsy Results Reviewed Results Reviewed: Name: Aminata Coleman Age/Sex: 48/F Attending: Lisbeth Boyer CNM : 1975 Submitted by: Lisbeth Boyer CNM Copies to: Deuce Dey CNP MR #: [id number] Status: DEP REF Collected: 07/23/24 Location: .LAB Received: 07/24/24 Interpretation Satisfactory for evaluation. Negative for intraepithelial lesion or malignancy. No endocervical cells seen. HPV High Risk: Negative HPV Genotyping 16: Negative HPV Genotyping 18: Negative Clinical Information LMP: Unknown date Previous PAP test: 2015, abnormal Material Received ThinPrep-Cervical Copies To Lisbeth Boyer CNM [facility] [address] [place] [address], [address] [place] [address] [facility] [address] [place] [address] [id number] [email or web address] Electronically Signed By: KOURTNEY De La Fuente (ASCP) 07/31/24 1036 As of June 19, 2024, the technical services to include automated prescreening performed by the ThinPrep Imaging System, PAP screening and HPV testing will be performed at [facility] (CLIA #[id number]), [address] [place] [address]. Testing for HPV was performed using the Ag[employer]in BILL 6800 system. The presence of HPV in the female genital tract is associated with a number of diseases, including cervical carcinoma. The HPV DNA high risk pool tests for HPV 31, 33, 35, 39, 45, 51, 52, 56, 58, 59, 66 and 68. The testing for HPV 16 and 18 genotypes has also been performed. A positive result Patient: Aminata Coleman Age/Sex: 48/F MR#: [id number] Page 1 of 2 Gynecologic Cytology [id number] indicates detection of nucleic acid sequences from one or more subtypes, whereas a negative result indicates such sequences were not detected. All professional services are performed by [facility] ([address] [place] [id number]; ; CLIA #[id number]). The PAP Test is a screening procedure with the inherent possibility of both false negative and false positive results. Results should be interpreted in the context of historic and current clinical findings. Reliability of the PAP Test is enhanced by performing the test on a regular repetitive basis. Patient: Aminata Coleman Age/Sex: 48/F MR#: [id number] Patient: Aminata Coleman MR#: [id number] : 1975 Acct:[id number] Age/Sex: 48 / F ADM Date: 10/04/24 Loc: HO.US Attending Dr: Lisbeth Boyer CNM Ordering Physician: Lisbeth Boyer CNM Date of Service: 10/04/24 Procedure(s): US pelvic and transvaginal Accession Number(s): [id number] cc: Lisbeth Boyer CNM; Deuce Dey TELEPHONE SURVEYOR~ CLINICAL HISTORY: N93.9 - Abnormal uterine and vaginal bleeding, unspecified US pelvis transabdominal and transvaginal Comparison: 08/01/2024 04:34 PM EST: [place]: US PELVIC AND TRANSVAGINAL Findings: Transabdominal scanning performed for overall anatomy. Transvaginal scanning performed for additional detail. Anteverted uterus is 8.0 cm length. Normal myometrium. Endometrium 7.0 mm thickness. No lesions. There is a myometrial 1.1 x 0.9 x 0.6 cm leiomyoma. Right ovary 3.0 x 1.9 x 1.3 cm. Left ovary 4.2 x 1.7 x 1.9 cm. Normal color Doppler of both ovaries. No free fluid. IMPRESSION: 1. Uterine myometrial leiomyoma. This document has been electronically signed by: Rudy Garzon MD on 10/05/2024 09:26:39 Dictated By: Rudy Garzon MD Signed By: <Electronically signed by Rudy Garzon MD in OV> 10/05/24926 DD/ 5 TD/TT: 10/05/24925 Activity Assistant: Patient: Aminata Coleman MR#: [id number] : 1975 Acct:[id number] Age/Sex: 48 / F ADM Date: 08/01/24 Loc: HO.US Attending Dr: Lisbeth Boyer CNM Ordering Physician: Lisbeth Boyer CNM Date of Service: 08/01/24 Procedure(s): US pelvic and transvaginal Accession Number(s): [id number] cc: RosalindLisbeth LILLI; Deuce Dey TELEPHONE SURVEYOR~ EXAMINATION: US PELVIS CLINICAL INFORMATION: Encounter for screening for malignant neoplasm, last menstrual period mid June 20 lasted 45 days. COMPARISON: None available. TECHNIQUE: Ultrasound of the pelvis is performed using both transabdominal and transvaginal transducers along with Doppler. Transvaginal imaging is performed due to inadequate visualization transabdominally. FINDINGS: The anteverted uterus measures 8.0 x 3.7 x 5.0 cm. Nabothian cysts in the cervix. Endometrial thickness is 7 mm. Right ovary measures 2.1 x 1.3 x 1.4 cm, volume 2.0 mL. A 0.4 cm echogenic focus in the right ovary is characteristic of calcification with multiple additional smaller echogenic foci. Left ovary measures 3.2 x 2.1 x 2.0 cm, volume 5.4 mL. 1.5 cm left ovarian cyst is likely simple. Tiny echogenic foci within the left ovary are characteristic of small calcifications. A 0.9 cm complex left ovarian cyst with diffuse low-level echoes. Visualization of the bilateral kidneys is limited due to bowel gas. US/US pelvic and transvaginal IMPRESSION: 1. Endometrial thickness is 7 mm. 2. Multiple small bilateral ovarian calcifications. A 0.9 cm complex left ovarian cyst. 1.5 cm simple left ovarian cyst. Correlation with clinical exam recommended to determine further management. Electronically signed by: Evangelina Cartwright MD 09/15/2024 11:57 AM EST Dictated By: Evangelina Cartwright MD Signed By: <Electronically signed by Evangelina Cartwright MD in OV> 09/15/24 1157 DD/ 1635 TD/TT: 08/01/24 1655 Activity Assistant: Assessment & Plan Assessment & Plan (1) Pap smear for cervical cancer screening: Comment: 07/23/2024 Pap is negative with negative HPV. Code(s): Z12.4 - Encounter for screening for malignant neoplasm of cervix Category: Medical (2) Abnormal uterine bleeding (AUB): Comment: We will proceed to endometrial biopsy.. /2/13/25- emb done, await results , in person (or tv if neg ) to review 1 wk Code(s): N93.9 - Abnormal uterine and vaginal bleeding, unspecified Category: Medical (3) Perimenopause: Code(s): N95.1 - Menopausal and female climacteric states Category: Medical (4) Bulky or enlarged uterus: Comment: 1 cm fibroid noted, EMB done 10/10/2024. Code(s): N85.2 - Hypertrophy of uterus Category: Medical (5) Ovarian cyst, complex: Comment: repeat ultrasound, if it persists investigate further./per 10/02/2024 ultrasound it has resolved completely. Code(s): N83.299 - Other ovarian cyst, unspecified side Category: Medical Plan Patient tolerated the endometrial biopsy well small amount of bleeding from tenaculum sites 4 passes and sampling obtained from 7.5 cm sounding uterus. Which was otherwise small anteverted mobile nontender. Reviewed with patient that I prefer an in-person visit to review results in case they are problematic however if they are completely negative with her permission we can call her and if it is convenient we may do a tele visit if it is better for her she finds it challenging to find a private space to talk in her workspace so in-person maybe just as easy for her. We will follow-up next week I reviewed the reassuring findings of the 2nd ultrasound the only thing of note was the 1 cm fibroid. The ovarian cyst has resolved. Reviewed her experience of her periods in general in general they are better than they used to be these to be quite debilitating. 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 She had been on control pills in the past and she feels like they made her crazy so she may not be interested hormones again.. rtc 1 wk for emb results Orders: Orders AMB Endometrial Biopsy Today N83.299 - Other ovarian cyst, unspecified side, N85.2 - Hypertrophy of uterus, N93.9 - Abnormal uterine and vaginal bleeding, unspecified, N95.1 - Menopausal and female climacteric states, Z12.4 - Encounter for screening for malignant neoplasm of cervix Coding Level of Care Code Est Pt Level 3 (26071) Diagnoses Pap smear for cervical cancer screening Z12.4 Abnormal uterine bleeding (AUB) N93.9 Perimenopause N95.1 Bulky or enlarged uterus N85.2 Ovarian cyst, complex N83.299 CPT Codes Endometrial Biopsy - CPT: 65767-[id number] Biopsy ([id number])
[2024-10-10 13:07] VITALS: BP 122/70; BMI 24.2
--- OUTSIDE RECORDS SUMMARY | 2024-10-10 13:10 | XMS_ITS | Clinical Summary ---
Author Organization [employer] Address [address] [facility] [address]t [place] [address] Care Team Providers Care General Distillery Worker Name Role Phone Yon Prasad Primary Care Provider [phone] Allergies No known active allergies Medications No [...] to complete this topic Insurance EYE MED [facility] DUAL PLAN [facility] GOLD Care Teams General Distillery Worker Relationship Specialty Start Date End Date Osmar, Kartik [address] [place], [place] [phone] PCP - General 04/11/24
== END 2024-10-10 13:51 | disposition home or self-care (01) ==
LOC: HO.HWSM 13:03
PROVIDERS: PCP Nurse Practitioner Family; Visit Provider Advanced Practice Midwife
DX: N93.9 Abnormal uterine and vaginal bleeding, unspecified (principal); N95.1 Menopausal and female climacteric states; N85.2 Hypertrophy of uterus; N83.299 Other ovarian cyst, unspecified side
CPT/HCPCS: 58100

== ENCOUNTER 2024-10-10 13:03 | Outpatient (REF) | payer OTHER, SELFPAY ==
--- OUTSIDE RECORDS SUMMARY | 2024-10-10 14:31 | XMS_ITS | Clinical Summary ---
Author Organization [employer] Address [address] [place] [address] Care Team Providers Care Parenting Skills Instructor Name Role Phone Yon Prasad Primary Care Provider [phone] Allergies No known active allergies Medications No [...] to complete this topic Insurance EYE MED [facility] DUAL PLAN [facility] GOLD Care Teams Parenting Skills Instructor Relationship Specialty Start Date End Date Osmar, Kartik [address] [place], [place] [phone] PCP - General 04/11/24
== END 2024-10-10 13:04 | disposition home or self-care (01) ==
LOC: HO.LNP 13:03
PROVIDERS: PCP Nurse Practitioner Family; Visit Provider Advanced Practice Midwife
DX: N93.9 Abnormal uterine and vaginal bleeding, unspecified (principal)
CPT/HCPCS: 58100; 88305

== ENCOUNTER 2024-10-17 08:59 | Outpatient (AMB) | payer OTHER, SELFPAY ==
--- NOTE | 2024-10-17 09:01 | A.OFFVIS_ITS ---
Vital Signs 10/17/24 09:04 Height 4 ft 10 in Weight 116 lb BMI 24.2 BP 100/60 Intake Visit Reasons: EMB,result Operations Analyst Required: No Operations Analyst Services: Operations Analyst Present Information Interpreted: clinical only Machine Leather Trimmer: Machine Leather Trimmer Present Allergies No Known Allergies Allergy (Verified 10/17/24 09:01) Medication List - Last Reconciled 10/17/24 by Lisbeth Boyer CNM No Known Home Meds Is last menstrual period known: Yes Last menstrual period: 10/11/24 HPI HPI EMB,result: Details: Patient is here to review her endometrial biopsy results. We reviewed them today there negative for any atypia the aplasia or any other concern findings are common and she was a right about to get her menses the day the endometrial biopsy was done as well which is consistent with the findings. We had reviewed the pelvic ultrasound which had been done rather quickly and resulted quickly as well at the time of the last visit so new findings of concern that as well. Patient says this particular menses that is started last week the day after the endometrial biopsy has not been as heavy as crampy as usual. Reviewed options that have been discussed earlier to deal with heavy and crampy and possible dysfunctional bleeding patterns perimenopause really well down to the Mirena IU S and she is not interested in taking in at all as she felt they did not do well with her years ago. She certainly would reconsider if her periods became unbearable or she had her the abnormal bleeding pattern but for now she would rather not do anything. She is scheduled for a colonoscopy. She had had some done with various findings in the past and she does have a family history of colon cancer so now that she has insurance again her provider's helping her to get screened for everything she believes she is up-to-date on her mammogram as well. For now see her next year for her annual instructional systems design consultant exam. There is still a CBC that she can get done whenever she wishes she is on the portal. I told her that we call her if the results would indicative severe. If the results are normal or extremely close to normal and I reviewed with her what those parameters be, then she could check them herself on the portal and be reassured. If severe anemia worry discovered then that would in gender another conversation about menses and a Mirena. 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 Current occupational exposures/hazards: No Cognitive needs: No Hearing needs: No Vision needs: Yes Female Reproductive History Menstrual Age of Menarche: 11 Duration of menses: 3-5 days Date of last menstrual period: 10/11/24 control method: none Total pregnancies: 0 Full term: 0 Date of last pap smear: 07/15/25 (negative) Physical Exam Vital Signs: Last Vital Signs BP 100/60 10/17/24 09:04 BMI result Body Mass Index 24.2 Results Reviewed Results Reviewed: Name: Aminata Coleman Age/Sex: 48/F Attending: Lisbeth Boyer CNM : 1975 Submitted by: Lisbeth Boyer CNM Copies to: Deuce Dey CNP MR #: [id number] Status: [facility] REF Collected: 10/10/24 Location: [facility] Received: 10/11/24 Diagnosis Endometrium, biopsy: Disordered proliferative endometrium with stromal breakdown; negative for atypia, hyperplasia or malignancy. Clinical History AUB Microscopic Description Microscopic sections reviewed. Material Received Endometrial biopsy Gross Description Received in formalin labeled ?endometrial biopsy? are cylindrical fragments of pink-larson soft tissue mixed with mucus and clotted blood forming an aggregate measuring 2.3 x 1.6 x 0.2 cm which is wrapped in lens paper and entirely submitted for microscopic examination, multiple pieces in cassette A. ([facility]) Copies To Lisbeth Boyer CNM [facility] Women's Services [address] [place] [address], 3rd Floor [place], [place] [id number] Deuce Dey CNP [address] [id number] [email or web address] NOTE: Unless otherwise stated, all tissue is formalin-fixed and paraffin- embedded. Some or all of the immunohistochemical tests reported herein may have been developed and their performance characteristics determined by [facility]. They have not been cleared or approved by the U.S. Food and Drug Administration (FDA). However, the FDA has determined that such clearance or approval is not necessary. This laboratory is certified under the Clinical Laboratory Improvement Amendments of 1988 (CLIA) as qualified to perform high complexity clinical laboratory testing. Patient: Aminata Coleman Age/Sex: 48/F MR#: [id number] Page 1 of 2 Surgical Pathology [id number] Electronically Signed By: Erum Avalos MD 10/15/24 2300 Patient: Aminata Coleman Age/Sex: 48/F MR#: [id number] Patient: Aminata Coleman MR#: [id number] : 1975 Acct:[id number] Age/Sex: 48 / F ADM Date: 10/04/24 Loc: HO. Attending Dr: Lisbeth Boyer CNM Ordering Physician: Lisbeth Boyer CNM Date of Service: 10/04/24 Procedure(s): US pelvic and transvaginal Accession Number(s): [id number] cc: Lisbeth Boyer CNM; Deuce Dey CNP CLINICAL HISTORY: N93.9 - Abnormal uterine and vaginal bleeding, unspecified US pelvis transabdominal and transvaginal Comparison: 08/01/2024 04:34 PM EST: [place]: US PELVIC AND TRANSVAGINAL Findings: Transabdominal scanning performed for overall anatomy. Transvaginal scanning performed for additional detail. Anteverted uterus is 8.0 cm length. Normal myometrium. Endometrium 7.0 mm thickness. No lesions. There is a myometrial 1.1 x 0.9 x 0.6 cm leiomyoma. Right ovary 3.0 x 1.9 x 1.3 cm. Left ovary 4.2 x 1.7 x 1.9 cm. Normal color Doppler of both ovaries. No free fluid. IMPRESSION: 1. Uterine myometrial leiomyoma. This document has been electronically signed by: Rudy Garzon MD on 10/05/2024 09:26:39 Dictated By: Rudy Garzon MD Signed By: <Electronically signed by Rudy Garzon MD in OV> 10/05/24926 DD/ 5 TD/TT: 10/05/24925 Safety Director: [place] [id number] Ultrasound Report Signed Patient: Aminata Coleman MR#: [id number] : 1975 Acct:[id number] Age/Sex: 48 / F ADM Date: 08/01/24 Loc: .[place] Attending Dr: Lisbeth Boyer CNM Ordering Physician: Lisbeth Boyer CNM Date of Service: 08/01/24 Procedure(s): US pelvic and transvaginal Accession Number(s): [id number] cc: Lisbeth Boyer CNM; Deuce Dey PROGRAM AND RESEARCH COORDINATOR~ EXAMINATION: US PELVIS CLINICAL INFORMATION: Encounter for screening for malignant neoplasm, last menstrual period mid June 20 lasted 45 days. COMPARISON: None available. TECHNIQUE: Ultrasound of the pelvis is performed using both transabdominal and transvaginal transducers along with Doppler. Transvaginal imaging is performed due to inadequate visualization transabdominally. FINDINGS: The anteverted uterus measures 8.0 x 3.7 x 5.0 cm. Nabothian cysts in the cervix. Endometrial thickness is 7 mm. Right ovary measures 2.1 x 1.3 x 1.4 cm, volume 2.0 mL. A 0.4 cm echogenic focus in the right ovary is characteristic of calcification with multiple additional smaller echogenic foci. Left ovary measures 3.2 x 2.1 x 2.0 cm, volume 5.4 mL. 1.5 cm left ovarian cyst is likely simple. Tiny echogenic foci within the left ovary are characteristic of small calcifications. A 0.9 cm complex left ovarian cyst with diffuse low-level echoes. Visualization of the bilateral kidneys is limited due to bowel gas. US/US pelvic and transvaginal IMPRESSION: 1. Endometrial thickness is 7 mm. 2. Multiple small bilateral ovarian calcifications. A 0.9 cm complex left ovarian cyst. 1.5 cm simple left ovarian cyst. Correlation with clinical exam recommended to determine further management. Electronically signed by: Evangelina Cartwright MD 09/15/2024 11:57 AM EST Dictated By: Evangelina Cartwright MD Signed By: <Electronically signed by Evangelina Cartwright MD in OV> 09/15/24 1157 DD/ 1635 TD/TT: 08/01/24 1655 Safety Director: Assessment & Plan Assessment & Plan (1) Pap smear for cervical cancer screening: Comment: 07/23/2024 Pap is negative with negative HPV. Code(s): Z12.4 - Encounter for screening for malignant neoplasm of cervix Category: Medical (2) Breast cancer screening by mammogram: Code(s): Z12.31 - Encounter for screening mammogram for malignant neoplasm of breast Category: Medical (3) Abnormal uterine bleeding (AUB): Comment: We will proceed to endometrial biopsy.. /10/10/24- emb done, await results , in person (or tv if neg ) to review 1 wk/negative results -reviewed detail. Code(s): N93.9 - Abnormal uterine and vaginal bleeding, unspecified Category: Medical (4) Ovarian cyst, complex: Comment: repeat ultrasound, if it persists investigate further./per 10/02/2024 ultrasound it has resolved completely. Code(s): N83.299 - Other ovarian cyst, unspecified side Category: Medical (5) Perimenopause: Code(s): N95.1 - Menopausal and female climacteric states Category: Medical Plan Patient is here to review her endometrial biopsy results. We reviewed them today there negative for any atypia the aplasia or any other concern findings are common and she was a right about to get her menses the day the endometrial biopsy was done as well which is consistent with the findings. We had reviewed the pelvic ultrasound which had been done rather quickly and resulted quickly as well at the time of the last visit so new findings of concern that as well. Patient says this particular menses that is started last week the day after the endometrial biopsy has not been as heavy as crampy as usual. Reviewed options that have been discussed earlier to deal with heavy and crampy and possible dysfunctional bleeding patterns perimenopause really well down to the Mirena IU S and she is not interested in taking in at all as she felt they did not do well with her years ago. She certainly would reconsider if her periods became unbearable or she had her the abnormal bleeding pattern but for now she would rather not do anything. She is scheduled for a colonoscopy. She had had some done with various findings in the past and she does have a family history of colon cancer so now that she has insurance again her provider's helping her to get screened for everything she either had, or we will be having soon, her mammogram. For now see her next year for her annual instructional systems design consultant exam. There is still a CBC that she can get done whenever she wishes she is on the portal. I told her that we call her if the results would indicative severe. If the results are normal or extremely close to normal and I reviewed with her what those parameters be, then she could check them herself on the portal and be reassured. If severe anemia worry discovered then that would in gender another conversation about menses and a Mirena. Timeframe/Date Comment RTC for instructional systems design consultant annual when due, Cancel / appointment, do labs when cane Schedule mammogram if not already done (ordered by [facility] April may have been done in outside facil Coding Level of Care Code Est Pt Level 3 (02075) Diagnoses Pap smear for cervical cancer screening Z12.4 Breast cancer screening by mammogram Z12.31 Abnormal uterine bleeding (AUB) N93.9 Ovarian cyst, complex N83.299 Perimenopause N95.1 Time Spent (min) 30 Comment Reviewed all of the findings and potential management scenarios
[2024-10-17 09:04] VITALS: BP 100/60; BMI 24.2
--- OUTSIDE RECORDS SUMMARY | 2024-10-17 09:35 | XMS_ITS | Clinical Summary ---
Author Organization [employer] Address [address] [place] [address] Care Team Providers Care Development Intern Name Role Phone Yon Prasad Primary Care Provider [phone] Allergies No known active allergies Medications No [...] to complete this topic Insurance EYE MED [facility] DUAL PLAN [facility] GOLD Care Teams Development Intern Relationship Specialty Start Date End Date Osmar, Kartik [address] [place], [place] [phone] PCP - General 04/11/24
== END 2024-10-17 09:48 | disposition home or self-care (01) ==
PROVIDERS: PCP Nurse Practitioner Family; Visit Provider Advanced Practice Midwife
DX: Z12.4 Encounter for screening for malignant neoplasm of cervix (principal); Z12.31 Encounter for screening mammogram for malignant neoplasm of breast; N93.9 Abnormal uterine and vaginal bleeding, unspecified; N83.299 Other ovarian cyst, unspecified side; N95.1 Menopausal and female climacteric states
CPT/HCPCS: 99213

== ENCOUNTER → 2024-10-17 08:59 | Outpatient (BNVA) | payer OTHER, SELFPAY | PROVIDERS: PCP Nurse Practitioner Family; Visit Provider Advanced Practice Midwife | DX: Z12.4 Encounter for screening for malignant neoplasm of cervix (principal); Z12.31 Encounter for screening mammogram for malignant neoplasm of breast; N95.1 Menopausal and female climacteric states; N83.299 Other ovarian cyst, unspecified side; N93.9 Abnormal uterine and vaginal bleeding, unspecified | CPT/HCPCS: 99212 ==

== ENCOUNTER → 2024-11-13 15:57 | Outpatient (BNVA) | payer OTHER, SELFPAY | PROVIDERS: PCP Nurse Practitioner Family; Visit Provider Nurse Practitioner Family | DX: Z01.818 Encounter for other preprocedural examination (principal); K58.0 Irritable bowel syndrome with diarrhea; K58.1 Irritable bowel syndrome with constipation; R14.0 Abdominal distension (gaseous) | CPT/HCPCS: 99202 ==

== ENCOUNTER → 2024-11-13 15:57 | Outpatient (AMB) | payer OTHER, SELFPAY ==
--- NOTE | 2024-11-13 16:10 | A.OFFVIS_ITS ---
Vital Signs 11/13/24 16:22 Height 4 ft 10 in Weight 119 lb 0.794 oz BMI 24.9 BP 124/78 Blood Pressure Location Rt brachial Position Sitting Pulse 88 Pulse Source Pulse Oximeter Pulse Oximetry (%) 98 Oxygen Delivery Method Room Air Intake Visit Reasons: COLO SCREENING Intake Note: NEW PATIENT for recall colonoscopy? Per pcp note, last was approx. 10 years ago. Chief Complaint; C/O intermittent diarrhea and constipation. Pt reports that it is largely affected by diet and is typically well controlled. No additional GI concerns at this time. Supervisor Fiberglass Boat Assembly Required: No Allergies No Known Allergies Allergy (Verified 10/17/24 09:01) HPI HPI COLO SCREENING: Details: 48 year old? female here today for pre colonoscopy screening.? Patient was sent to us by her PCP.? Patient had 2 colonoscopies in her early and late 30s diagnostic. Patient was diagnosed with IBS. Occasional postprandial abdominal diarrhea depending on what she eats. Usually things heavy like creamy and spicy food. Patient denies melena, hematochezia. Family history of CRC. Patient's sister was diagnosed with CRC in her late 40s and was told that she is in remission just before her 50th birthday.? Denies history of difficulty with sedation or anesthesia in the past.? Negative for history of sleep apnea.? Denies any history of cardiac, renal, pulmonary, or hepatic disease.?? No history of infectious? diseases like hepatitis A, B, C, HIV or tuberculosis.? 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 Current occupational exposures/hazards: No Cognitive needs: No Hearing needs: No Vision needs: Yes Female Reproductive History Menstrual Age of Menarche: 11 Review of Systems Const Denies weight gain and Denies weight loss ENT Reports no additional complaints, Denies dysphagia and Denies odynophagia Card Reports no additional complaints Resp Reports no additional complaints GI Denies abdominal pain, Denies belching, Denies melena, Reports bloating, Denies change in bowel habits, Denies dysphagia, Denies excessive flatus, Denies dyspepsia, Denies heartburn, Denies diarrhea, Reports loose stools (occasional), Denies nausea, Denies odynophagia and Denies vomiting Reports no additional complaints Musc Reports no additional complaints Neuro Reports no additional complaints Psych Reports no additional complaints Endo Reports no additional complaints Physical Exam Vital Signs: Last Vital Signs Pulse 88 11/13/24 16:22 BP 124/78 11/13/24 16:22 Pulse Ox 98 11/13/24 16:22 Oxygen Delivery Method Room Air 11/13/24 16:22 BMI result Body Mass Index 24.9 Const General: healthy appearing, no acute distress and well developed Nutritional Appearance: well nourished Orientation/consciousness: patient oriented x3 Resp Effort & Inspection: normal respiratory effort, able to speak in complete sentences, no tracheal deviation and symmetric chest movement Auscultation: clear to auscultation bilaterally Cardio Rate: regular rate GI Inspection: Yes normal to inspection and No distended Palpation (GI): Soft to palpation, not firm, nontender and No hepatosplenomegaly present Auscultation: normal bowel sounds General: Yes no CVA tenderness Back/Spine/Pelvis Back: no CVA tenderness Skin General skin exam: elasticity normal, turgor normal and dry skin Neuro General: patient oriented x3 Psych Appearance: grossly normal Mental Status: mental status grossly normal Assessment & Plan Assessment & Plan (1) Colon cancer screening: Code(s): Z12.11 - Encounter for screening for malignant neoplasm of colon Category: Medical (2) IBS (irritable bowel syndrome): Code(s): K58.9 - Irritable bowel syndrome, unspecified Qualifiers: Irritable bowel syndrome type: with diarrhea Qualified Code(s): K58.0 - Irritable bowel syndrome with diarrhea (3) Postprandial abdominal bloating: Code(s): R14.0 - Abdominal distension (gaseous) Plan Patient denies any cardiac or respiratory symptoms.? Denies any issues with anesthesia in the past.? Denies any history of sleep apnea.? No history infectious diseases in the past or present.? Not on any anticoagulation therapy.? No family or personal history of colon cancer or polyps.? Occasional postprandial loose stools. Diagnosed with IBS in the past Patient denies melena, hematochezia, unintentional weight loss or ribbon like stools.? Discussed at length the pre-procedure,? prep, diet & medications as well as what to expect prior, during and after the procedure.?? Stressed the importance of good bowel prep.? Recommended the use of Vaseline or Calmoseptine OTC & baby wipes with bowel movements to promote comfort.? ?Patient verbalizes understanding and agrees to plan of care.? She was given the opportunity to ask questions and all questions answered.? We will see her after the procedure.? Medications: New bisacodyl (Dulcolax (bisacodyl)) take 4 tabs at noon the day before your colonoscopy 20 mg (4 x 5 mg) PO ONCE 4 tabs 0RF 1 day Z12.11 - Encounter for screening for malignant neoplasm of colon polyethylene glycol 3350 (Miralax) As directed by gastroenterology department at [facility] 238 grams PO ONCE 238 grams 0RF Z12.11 - Encounter for screening for malignant neoplasm of colon Coding Level of Care Code New Pt Level 4 (60107) Diagnoses Colon cancer screening Z12.11 Irritable bowel syndrome with diarrhea K58.0 Irritable bowel syndrome type: with diarrhea Postprandial abdominal bloating R14.0 Time Spent (min) 45 Comment 35 minutes spent with patient and additional 10 minutes spent reviewing her records
[2024-11-13 16:22] VITALS: BP 124/78; PULSE 88; O2SAT 98; BMI 24.9
== END ==
PROVIDERS: PCP Nurse Practitioner Family; Visit Provider Nurse Practitioner Family
DX: Z01.818 Encounter for other preprocedural examination (principal); Z12.11 Encounter for screening for malignant neoplasm of colon; K58.0 Irritable bowel syndrome with diarrhea; R14.0 Abdominal distension (gaseous)
CPT/HCPCS: 99202

== ENCOUNTER 2025-05-23 08:00 | Outpatient (AMB) | payer OTHER, SELFPAY ==
--- OUTSIDE RECORDS SUMMARY | 2025-05-23 08:04 | XMS_ITS | Clinical Summary ---
Author Organization [employer] Address [address] [place] [address] Care Team Providers Care Post Partum Nurse Name Role Phone Yon Prasad Primary Care Provider [phone] Allergies No known active allergies Medications No [...] - - Pulse - - Temperature 36.2 C (97.2 F) 04/30/2024 8:33 AM EDT Respiratory Rate - - Oxygen Saturation - - Inhaled Oxygen Concentration - - Weight - - Height - - Body Mass Index - - Plan of Treatment Health Maintenance Due Date Last Done Comments CT Colonography 1977 Colonoscopy 1977 Colorectal Cancer Screening 1975 Depression Screening 1977 FIT DNA/Cologuard 1977 FIT 1977 FOBT 1975 HIV Screening 1975 SDOH Screening 1975 Sigmoidoscopy 1975 Disability Screening 1977 Alcohol/Substance Use Screening 1989 Tobacco Screening 1989 Family Planning (PISQ) 1992 Hepatitis C Screening 12/04/1995 DTaP/Tdap/Td Vaccines (1 - Tdap) 1996 Hepatitis B Vaccines (1 of 3 - 19+ 3-dose series) 1996 Pap Smear 1998 Cervical Cancer Screening 12/04/2007 HPV/Cotest 12/04/2007 Mammogram 2017 COVID-19 Vaccine (1 - 2023-2 5 season) 2025 Influenza Vaccine (#1) 2025 Zoster Vaccines (1 of 2) 12/04/2027 RSV [...] patient's age to complete this topic Meningococcal B Vaccine Aged Out No l onger eligible based on patient's age to complete this topic Meningococcal Vaccine Aged Out No windy fany eligible based on patient's age to complete this topic Pneumococcal Vaccine: Pediat rics (0 to 5 Years) and At-Risk Patients (6 to 49) Years Aged Out No longer eligible b ased on patient's age to complete this topic RSV under 20 months Aged Out No longe r eligible based on patient's age to complete this topic Rotavirus Vaccines Aged Out No longer eligible based on patient's age to complete this topic Insurance EYE MED [facility] DUAL PLAN [facility] GOLD [place] [id number] Care Teams Post Partum Nurse Relationship Specialty Start Date End Date Osmar, Kartik [address] [place] [address] PCP - General 04/11/24
--- NOTE | 2025-05-23 08:05 | A.OFFPC_ITS ---
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[employer] Required: No Is last menstrual period known: Yes Last menstrual period: 04/06/25 Post menopausal: No Patient : No Allergies No Known Allergies Allergy (Verified 05/23/25 08:18) Tobacco use date assessed: 05/23/25 Dental Screening Dental Screen Date: 05/23/25 Did you have a dental visit in the last 12 months?: Yes Did you have a dental problem in the last 6 months where you did not have access to dental care?: No Was dental information given to patient?: Patient has dentist HPI HPI Comments History of Present Illness Details 49-year-old female presents for an extended physical exam. She is not on prescription medication. She reports chronic diminished hearing to her left ear. No pain. She notes controlled anxiety symptoms. Acute issue(s) - None Past Medical History - Hyperopia, IBS, diminished left heari ng, anxiety Social History - Nonsmoker. Does not vape. Drinks 3-4 b eers/cider on weekends. Denies recreational drug use - Has been making healthy dietary choice s. Exercises sometimes. Generally sleep well Health maintenance - Last eye exam was about a year ago [facility]. Encouraged to follow up for annual eye exam and sign a release for her PCP to obtain her ophthalmology record - Last dental visit was 2-3 weeks ago - Last Tdap was in 05/23/2024 - Has not been vaccinated for the flu ; declines vaccination - Last pap smear test was in 06/2024: Ne gative - Last mammogram was a year ago with [facility]: Normal. PCP will obtain and review record - Last colonoscopy was 11 years ago. Mis sed Colonoscopy appt. with [facility] gastroenterology. She will call and schedule an appt. Specialists - 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 1. Little interest or pleasure in doing things: not at all 2. Feeling down, depressed, or hopeless: several days 3. Trouble falling or staying asleep, or sleeping too much: several days 4. Feeling tired or having little energy: more than half the days 5. Poor appetite or overeating: not at all 6. Feeling bad about yourself - or that you are a failure or have let yourself or your family down: several days 7. Trouble concentrating on things, such as reading the newspaper or watching television: not at all 8. Moving or speaking so slowly that other people could have noticed. Or the opposite - being so fidgety or restless that you have been moving around a lot more than usual: not at all 9. Thoughts that you would be better off or of hurting yourself in some way: not at all Total score: 5 Depression Screening Interpretation: Positive Depression Screening Done: Yes 49487 - PHQ-9 Billing: Yes Source: Developed by Drs. Chad Valerio, Michelle Sanches, Scotty Means and colleagues, with an educational avril from [employer]. Thrive Questionnaire Date Thrive assessed: 05/23/25 I am a: Patient What is your living situation today?: I have a steady place to live Within the past 12 months, did the food you bought not last and you didn't have the money to get more?: Sometimes True Within the past 12 months, did you worry whether your food would run out before you got money to buy more?: Sometimes True Do you have trouble paying for medicines?: No Do you have trouble getting transportation to medical appointments?: No Do you have trouble paying your heating and electricity bill?: No Do you have trouble taking care of your child, family member or friend?: No Do you have trouble with day-to-day activities such as bathing, preparing meals, shopping, managing finances, etc.?: No Are you currently unemployed and looking for a job?: No Are you interested in more education?: No Please select the resources that you would like help with: None Currently or been in a relationship where the following occur: No concerns reported THRIVE Score: 2 AUDIT C Alcohol Use Questionnaire (AUDIT-C) 1. How often do you have a drink containing alcohol?: 2-3 times a week 2. How many drinks containing alcohol do you have on a typical day when you are drinking?: 1 or 2 3. How often do you have six or more drinks on one occasion?: Never Total Score: 3 Score Reviewed/Action Taken: Yes FRANCISCO-7 AMB Questionnaire FRANCISCO-7 Date FRANCISCO - 7 assessed: 05/23/25 Feeling nervous, anxious, or on edge: 1 = Several days Not being able to stop or control worryin = Several days Worrying too much about different things: 1 = Several days Trouble relaxin = Several days Being so restless that it is hard to sit still: 0 = Not at all Becoming easily annoyed or irritable: 1 = Several days Feeling afraid as if something awful might happen: 1 = Several days Total FRANCISCO-7 score (0-4 normal; 5-9 mild; 10-14 moderate; 15-21 severe): 6 Source: Developed by Drs. Chad Valerio, Michelle Sanches, Scotty Means and colleagues, with an educational avril from [employer]. FRANCISCO-7 Assessment Billing FRANCISCO-7 Assessment Tool: FRANCISCO-7 Assessment 86144 Review of Systems Const Details: Denies chills, Denies fatigue, Denies fever(s), Denies headache(s) and Denies weakness HEENT Reports diminished hearing to left ear, Denies change in vision, Denies dizziness, Denies headache(s), Denies nasal congestion, Denies sinus pain, Denies sinus pressure and Denies sore throat Card Denies chest pain, Denies lightheadedness, Denies dyspnea and Denies other (palpitations) Resp Denies cough, Denies dyspnea and Denies wheezing GI Denies abdominal pain, Denies melena, Denies hematochezia, Denies change in bowel habits, Denies dyspepsia and Denies nausea Denies hematuria and Denies dysuria Musc Denies abnormal gait, Denies myalgias, Denies arthralgias, Denies numbness and Denies tingling Skin/Breast Denies rash, Denies unusual bruising and Denies wounds Neuro Denies abnormal gait, Denies dizziness, Denies headache(s), Denies memory loss, Denies numbness, Denies Sensory deficit (Neuro), Denies tingling and Denies weakness Psych Denies anxiety, Denies depression and Denies memory loss Endo Denies cold intolerance, Denies fatigue, Denies heat intolerance, Denies polydipsia and Denies polyuria Humphrey/Lymph Denies easy bleeding and Denies easy bruising Aller/Immun Denies wheezing Physical exam (Primary Care) Vital Signs: Last Vital Signs Temp 97.8 F 05/23/25 08:11 Pulse 73 05/23/25 08:11 Resp 16 05/23/25 08:11 BP 124/56 L 05/23/25 08:11 Pulse Ox 97 05/23/25 08:11 Oxygen Delivery Method Room Air 05/23/25 08:11 BMI result Body Mass Index 24.1 Tobacco/Smoking Status: Tobacco use Status Tobacco use date assessed 05/23/25 05/23/25 08:11 Patient Tobacco Use Status Never used Tobacco 05/23/25 08:08 e-Cigarette/Vaping Use Never Used 05/23/25 08:08 PHQ-9: PHQ-9 Score PHQ-9: Total score 5 05/23/25 08:24 Depression Screening Interpretation: Positive Thrive Assessment: Date of Thrive Assessment Date Thrive assessed 05/23/25 05/23/25 08:08 Currently or been in a relationship where the following occur: No concerns reported Const Other: General: no acute distress, well developed, alert and awake Nutritional Appearance: well nourished Orientation/consciousness: patient oriented x3 HENMT Head: Yes normocephalic and Yes atraumatic Ears: Diminished hearing to left ear hearing with impacted cerumen of the left ear occluding the TM, Normal right ear exam with normal TM General nose exam: Normal external nose present and Normal nares present Mouth: Normal oral and palatal mucosa present and moist mucous membranes Teeth and gingiva: dentition normal Throat: Yes oropharynx normal Eyes Pupils: Equal, round and reactive pupils present and Pupil accommodation reflex normal EOM: EOMs intact bilaterally Neck Neck: Yes normal visual inspection, Yes no lymphadenopathy and Yes trachea midline Thyroid: Thyroid normal Carotids: no bruits Lymphatic: no lymphadenopathy noted Chest Chest palpation & inspection: normal inspection of the chest Resp Effort & Inspection: normal respiratory effort Auscultation: clear to auscultation bilaterally Cardio Rate: regular rate Rhythm: regular rhythm Heart sounds: S1 normal heart sound present, S2 normal heart sound present, no gallops, no murmurs and no rubs Bruits: no abdominal aortic bruits and no carotid bruits GI Palpation (GI): No Abdominal aortic bruit present, Soft to palpation, nontender, No hepatosplenomegaly present and No Rebound tenderness present Auscultation: normal bowel sounds General: Yes no CVA tenderness Back/Spine/Pelvis Back: no CVA tenderness Cervical Spine: cervical ROM normal and No Cervical spine tenderness Thoracic/Lumbar Spine: thoraco-lumbar ROM normal, No pain with thoraco-lumbar ROM, No thoracic spinal tenderness and No lumbar spinal tenderness Skin General: warm and dry. Normal skin color. Normal skin turgor Lesions: no lesions Rashes: no rashes Trauma: no lacerations or abrasions Wounds: no wounds Nails: normal Neuro General: patient oriented x3, gait normal and CN's II-XI intact bilaterally Cranial nerves: Yes Equal, round and reactive pupils present Cognition (Neuro): normal cognition Gait exam (Neuro): Normal gait present Motor exam (neuro): 5/5 motor strength present throughout Sensory Exam: No Sensory deficit (Neuro) Deep tendon reflexes (DTR's): Right patellar reflex intensity grade: 2+ and Left patellar reflex intensity grade: 2+ Extrem General: Yes normal to inspection, No edema and No calf tenderness Psych Appearance: grossly normal Affect: normal affect Attitude: cooperative Thought process: Normal thought process present Coding Level of Care Code Est Pt Level 4 (97310) Est Pt Prev Care 40-64y(53026) Diagnoses Normal physical examination, routine Z00.00 Impacted cerumen, left ear H61.22 Laboratory tests ordered as part of a complete physical exam (CPE) Z00.00 Additional Codes FRANCISCO-7 Assessment Billing - FRANCISCO-7 Assessment Tool: FRANCISCO-7 Assessment 52705 ([id number]) PHQ-9 - 54592 - PHQ-9 Billing: Yes ([id number]) Assessment & Plan Assessment & Plan (1) Normal physical examination, routine: Code(s): Z00.00 - Encounter for general adult medical examination without abnormal findings Category: Medical Plan: No significant functional limitation noted. Healthy diet and routine exercise encouraged. Perform lab work before next visit. Follow-up for left ear lavage and labs review in 2-4 weeks. Return sooner with symptoms or concerns. Verbalized understanding and agreed with the plan. (2) Impacted cerumen, left ear: Code(s): H61.22 - Impacted cerumen, left ear Category: Medical Plan: Reports chronic diminished hearing to her left ear. No pain. Diminished hearing to left ear hearing with impacted cerumen of the left ear occluding the TM, Normal right ear exam with normal TM. Debrox as prescribed. Follow-up for left ear lavage in 2-4 weeks. Verbalized understanding and agreed with the plan. (3) Laboratory tests ordered as part of a complete physical exam (CPE): Code(s): Z00.00 - Encounter for general adult medical examination without abnormal findings Category: Medical Plan: Fasting labs ordered as part of a complete physical exam. Advised to fast for at least 10 hours before getting labs drawn. May drink water Verbalized understanding and agreed with treatment plan. Orders: Orders UA CC w/rflx Micro + Cult Today Z00.00 - Encounter for general adult medical examination without abnormal findings Complete Blood Count Auto Diff Today Z00.00 - Encounter for general adult medical examination without abnormal findings Comprehensive [place]. Panel Fast Today Z00.00 - Encounter for general adult medical examination without abnormal findings Lipid Panel Today Z00.00 - Encounter for general adult medical examination without abnormal findings Microalbumin, Random (w Creat) Today Z00.00 - Encounter for general adult medical examination without abnormal findings TSH reflex Free T4 Today Z00.00 - Encounter for general adult medical examination without abnormal findings Vitamin D 25-OH Total Today Z00.00 - Encounter for general adult medical examination without abnormal findings Medications: New carbamide peroxide 6.5% (Debrox) 5 drps otic (ear) left DAILY 15 mL 0RF 4 days Discontinued bisacodyl (Dulcolax (bisacodyl)) take 4 tabs at noon the day before your colonoscopy Discontinued Reason: Patient no longer taking 20 mg (4 x 5 mg) PO ONCE 1 day 4 tabs 0RF Z12.11 - Encounter for screening for malignant neoplasm of colon polyethylene glycol 3350 (Miralax) As directed by gastroenterology department at [facility] Discontinued Reason: Patient no longer taking 238 grams PO ONCE 238 grams 0RF Z12.11 - Encounter for screening for malignant neoplasm of colon
[2025-05-23 08:11] VITALS: BP 124/56; PULSE 73; RESP 16; TEMP 36.6; O2SAT 97; BMI 24.1
== END 2025-05-23 08:34 | disposition home or self-care (01) ==
LOC: HO.HMCFM 08:01
PROVIDERS: PCP Nurse Practitioner Family; Visit Provider Nurse Practitioner Family
DX: Z00.00 Encounter for general adult medical examination without abnormal findings (principal); H61.22 Impacted cerumen, left ear

== ENCOUNTER → 2025-05-23 08:00 | Outpatient (BNVA) | payer OTHER, SELFPAY | PROVIDERS: PCP Nurse Practitioner Family; Visit Provider Nurse Practitioner Family | DX: Z00.00 Encounter for general adult medical examination without abnormal findings (principal); H61.22 Impacted cerumen, left ear | CPT/HCPCS: 96127; 99212; 99396 ==

== ENCOUNTER 2025-05-30 07:39 | Outpatient (REF) | payer OTHER, SELFPAY ==
[2025-05-30 11:28] LABS: Appearance Urine Clear; Glucose Urine UA Negative (Negative); PH 6.5 (5.0-9.0); Specific Gravity - Urine 1.025 (1.005-1.025)
[2025-05-30 11:35] LABS: MANUAL DIFF FLAG NO
[2025-05-30 11:50] LABS: Hematocrit 39.1 % (37.0-47.0); Hemoglobin 13.5 g/dl (12.0-16.0); Imm Gran Abs Auto 0.01 X10*3/uL (0.00-0.03); Imm Gran Pct Auto 0.2 % (0.0-0.4); Lymphocytes Absolute Auto 1.4 X10*3/uL (1.2-4.9); Mean Corpuscular HGB Conc 34.5 g/dl (31.0-35.0); Mean Corpuscular Hemoglobin 30.0 pg (27.0-33.0); Mean Corpuscular Volume 86.9 fL (80.0-98.0); NRBC Abs Auto 0.000 X10*3/uL (0.0-0.012); NRBC Pct Auto 0.0 /100WBC (0.0-0.2); Platelet Count 349 X10*3/uL (160-400); Red Blood Count 4.50 X10*6/uL (4.20-5.50); White Blood Count 5.6 X10*3/uL (4.8-10.8)
[2025-05-30 12:05] LABS: Alanine Aminotransferase 30 U/L (0-31); Albumin Level 4.6 g/dL (3.5-5.0); Alkaline Phosphatase 80 U/L (39-117); Anion Gap 13 (12-20); Aspartate Amino Transferase 32 U/L (5-31); Blood Urea Nitrogen 16 mg/dL (9-16); Calcium 9.1 mg/dL (8.4-10.2); Carbon Dioxide 25 mmol/L (22-29); Chloride 104 mmol/L (96-108); Cholesterol 202 mg/dL (<200); Estimated Glomerular Filt Rate > 60; HDL Cholesterol 55 mg/dL (>40); Potassium 3.8 mmol/L (3.3-5.1); Sodium 138 mmol/L (135-145); Total Protein 7.2 g/dL (6.5-8.0); Triglycerides 107 mg/dL (<150)
[2025-05-30 12:23] LABS: Microalbum/Creatinine Ratio Ur 7.5 ug/mg cr (<30)
== END 2025-05-30 07:40 | disposition home or self-care (01) ==
LOC: HO.WFDLDS 07:39
PROVIDERS: Advanced Practice Midwife; Visit Provider Nurse Practitioner Family
DX: Z00.00 Encounter for general adult medical examination without abnormal findings (principal)
CPT/HCPCS: 36415; 80053; 80061; 81003; 82043; 82306; 82570; 84443; 85025

== ENCOUNTER 2025-06-03 08:17 | Outpatient (AMB) | payer OTHER, SELFPAY ==
--- NOTE | 2025-06-03 08:21 | A.OFFPC_ITS ---
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: No Is last menstrual period known: Yes Last menstrual period: 06/02/25 Post menopausal: No Patient : No Allergies No Known Allergies Allergy (Verified 06/03/25 08:29) Tobacco use date assessed: 06/03/25 Dental Screening Dental Screen Date: 06/03/25 Did you have a dental visit in the last 12 months?: Yes Did you have a dental problem in the last 6 months where you did not have access to dental care?: No Was dental information given to patient?: Patient has dentist HPI HPI Comments History of Present Illness Details 49-year-old female presents for left ear lavage and review of recent lab results. She notes ongoing diminished left hearing. She denies acute symptoms this time. 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 Current occupational exposures/hazards: No Cognitive needs: No Hearing needs: No Vision needs: Yes Female Reproductive History Menstrual Age of Menarche: 11 Date of last menstrual period: 06/02/25 Questionnaire Thrive Questionnaire Date Thrive assessed: 05/18/25 I am a: Patient What is your living situation today?: I have a steady place to live Within the past 12 months, did the food you bought not last and you didn't have the money to get more?: Sometimes True Within the past 12 months, did you worry whether your food would run out before you got money to buy more?: Sometimes True Do you have trouble paying for medicines?: No Do you have trouble getting transportation to medical appointments?: No Do you have trouble paying your heating and electricity bill?: No Do you have trouble taking care of your child, family member or friend?: No Do you have trouble with day-to-day activities such as bathing, preparing meals, shopping, managing finances, etc.?: No Are you currently unemployed and looking for a job?: No Are you interested in more education?: No Please select the resources that you would like help with: None Currently or been in a relationship where the following occur: No concerns reported THRIVE Score: 2 FRANCISCO-7 AMB Questionnaire FRANCISCO-7 Date FRANCISCO - 7 assessed: 05/23/25 Source: Developed by Drs. Chad Valerio, Michelle Sanches, Scotty Means and colleagues, with an educational avril from [employer]. Review of Systems Const Details: Const Denies chills, Denies fatigue, Denies fever(s), Denies headache(s) and Denies weakness ENT Reports as per HPI Card Denies chest pain, Denies lightheadedness, Denies dyspnea and Denies other (Palpitations) Resp Denies cough, Denies dyspnea, Denies wheezing and Denies other ( shortness of breath) GI Denies abdominal pain, Denies melena, Denies hematochezia, Denies change in bowel habits, Denies dyspepsia and Denies nausea Denies hematuria and Denies dysuria Musc Denies abnormal gait, Denies myalgias, Denies arthralgias, Denies numbness and Denies tingling Skin/Breast Denies rash, Denies unusual bruising and Denies wounds Neuro Denies abnormal gait, Denies dizziness, Denies headache(s), Denies memory loss, Denies numbness, Denies Sensory deficit (Neuro), Denies tingling and Denies weakness Psych Denies anxiety, Denies depression, Denies memory loss Endo Denies cold intolerance, Denies fatigue, Denies heat intolerance, Denies polydipsia and Denies polyuria Aller/Immun Denies wheezing Physical exam (Primary Care) Vital Signs: Last Vital Signs Temp 98.0 F 06/03/25 08:30 Pulse 80 06/03/25 08:30 Resp 16 06/03/25 08:30 BP 102/64 06/03/25 08:30 Pulse Ox 97 06/03/25 08:30 Oxygen Delivery Method Room Air 06/03/25 08:30 BMI result Body Mass Index 24.7 Tobacco/Smoking Status: Tobacco use Status Tobacco use date assessed 06/03/25 06/03/25 08:34 Patient Tobacco Use Status Never used Tobacco 06/03/25 08:23 e-Cigarette/Vaping Use Never Used 06/03/25 08:23 Thrive Assessment: Date of Thrive Assessment Date Thrive assessed 05/18/25 06/03/25 08:23 Currently or been in a relationship where the following occur: No concerns reported Const Other: General: no acute distress and well developed Nutritional Appearance: well nourished Orientation/consciousness: patient oriented x3 HENMT Head is normocephalic Left ear canal with significant cerumen occluding the TM. Right ear canal and TM normal Nasal turbinates and oropharynx are pink and moist Sinuses are nontender with palpation No auricular or cervical lymphadenopathy Eyes General: appearance normal, both eyes and all related structures Pupils: Equal, round and reactive pupils present EOM: EOMs intact bilaterally Resp Effort & Inspection: normal respiratory effort Auscultation: clear to auscultation bilaterally Cardio Rate: regular rate Rhythm: regular rhythm Heart sounds: S1 normal heart sound present, S2 normal heart sound present, no gallops, no murmurs and no rubs GI Palpation (GI): No Abdominal aortic bruit present, Soft to palpation, nontender, No hepatosplenomegaly present and No Rebound tenderness present Auscultation: normal bowel sounds General: Yes no CVA tenderness Back/Spine/Pelvis Back: no CVA tenderness Cervical Spine: cervical ROM normal and No Cervical spine tenderness Thoracic/Lumbar Spine: thoraco-lumbar ROM normal, No pain with thoraco-lumbar ROM, No thoracic spinal tenderness and No lumbar spinal tenderness Extrem General: Yes normal to inspection, No edema and No calf tenderness Skin General: warm and dry. Normal skin color. Normal skin turgor Neuro General: patient oriented x3, gait normal and no focal neuro deficit Cranial nerves: Yes Equal, round and reactive pupils present Cognition (Neuro): normal cognition Gait exam (Neuro): Normal gait present Sensory Exam: No Sensory deficit (Neuro) Psych Appearance: grossly normal Affect: normal affect Attitude: cooperative Thought process: Normal thought process present Coding Level of Care Code Tele Est Pt Level 4 (79771) Diagnoses Impacted cerumen, left ear H61.22 Hypercholesterolemia E78.00 Assessment & Plan Assessment & Plan (1) Impacted cerumen, left ear: Code(s): H61.22 - Impacted cerumen, left ear Category: Medical Plan: Significant amount of cerumen removed from the left ear with irrigation. Left ear canal and TM normal. Patient reports significant hearing improvement after the procedure. Encouraged to follow-up with symptoms or concerns. Verbalized understanding and agreed with the plan. (2) Hypercholesterolemia: Code(s): E78.00 - Pure hypercholesterolemia, unspecified Category: Medical Plan: Recent total cholesterol and LDL levels are elevated, 202 and 126 respectively, triglycerides and HDL levels are normal. Advised to limit foods high in saturated fat and avoid foods high in trans fat. Routine exercise encouraged. Fast for 10-12 hours, may drink water, and perform lipid panel blood work a few days before next visit. Follow-up for telehealth visit in 2 months. Return sooner with symptoms or concerns. Verbalized understanding and agreed with the plan. Orders: Orders Lipid Panel 2 Months E78.00 - Pure hypercholesterolemia, unspecified
[2025-06-03 08:30] VITALS: BP 102/64; PULSE 80; RESP 16; TEMP 36.7; O2SAT 97; BMI 24.7
== END 2025-06-03 08:54 | disposition home or self-care (01) ==
LOC: HO.HMCFM 08:18
PROVIDERS: PCP Nurse Practitioner Family; Visit Provider Nurse Practitioner Family
DX: E78.00 Pure hypercholesterolemia, unspecified (principal); H61.22 Impacted cerumen, left ear

== ENCOUNTER → 2025-06-03 08:17 | Outpatient (BNVA) | payer OTHER, SELFPAY | PROVIDERS: PCP Nurse Practitioner Family; Visit Provider Nurse Practitioner Family | DX: H61.22 Impacted cerumen, left ear (principal); E78.00 Pure hypercholesterolemia, unspecified | CPT/HCPCS: 69209; 99212 ==

== ENCOUNTER 2025-06-30 10:22 | Day surgery (SDC) | payer OTHER, SELFPAY ==
--- OUTSIDE RECORDS SUMMARY | 2025-06-12 15:33 | XMS_ITS | Clinical Summary ---
Author Organization [employer] Address [address] [place] [address] Care Team Providers Care Director Imaging Name Role Phone Yon Prasad Primary Care Provider Allergies No known active allergies Medications No [...] to complete this topic Insurance EYE MED [facility] DUAL PLAN [facility] GOLD SHARIFA SÁNCHEZ [id number] Care Teams Director Imaging Relationship Specialty Start Date End Date Osmar, Kartik [address] [place] [address] PCP - General 04/11/24
[2025-06-26 14:43] VITALS: BMI 24.9
--- NOTE | 2025-06-30 10:38 | P.HPSUR_ITS ---
Pre-Procedural Eval Section A - 24 Hr Update-Section A only Date of Service: 06/30/25 The patient is an INPATIENT: No The patient has been examined within 24 hours of the surgical procedure. The History & Physical has been completed within 30 days and I have reviewed it.: No Section B - Complete if H&P > 30 days Chief Complaint: screening Relevant Family History (Specify if Yes): Yes Relevant Social History: None Present Medications: see Short Stay Collaborative assessment Medical History: Significant History (HPV (human papilloma virus) anogenital in fection Anxiety History of IBS) History of Previous Operations: Relevant previous surgery/procedure and date(s) (History of colonoscopy) Allergies: Allergies Allergy/AdvReac Type Severity Reaction Status Date / Time No Known Allergies Allergy Verified 06/03/25 08:29 Review of Systems Sugical H&P ROS: Negative: Constitution, Cardiovascular, Respiratory and Gastrointestinal Exam Surgical H&P Exam: Normal: Heart, Normal: Lungs, Normal: Extremities and Normal: Abdomen Plan Diagnosis/Plan: Unchanged I have reviewed the history and physical and performed a pertinent physical examination on my patient. No changes have occurred unless specified. Time Spent With Patient Time: Total time managing care of this patient today ____ minutes.
[2025-06-30 11:07] VITALS: BP 116/67; PULSE 90; RESP 18; TEMP 36.6; O2SAT 98
[2025-06-30 11:07] LABS: UPreg QC Valid YES
[2025-06-30] MEDS: Lactated Ringers 1,000 ML 100 ML IVCONT (11:07)
[2025-06-30 11:09] VITALS: BMI 23.5
--- NOTE | 2025-06-30 11:41 | HO.ANESPROP2 ---
Documented by User: Olimpia Coreas NP 06/25/25 13:38 HPI - Anesthesia Eval Consult details Narrative: 49yo F for Colonoscopy PMFSH Active Problems Active Problems: All Active Problems Hypercholesterolemia (Acute) Impacted cerumen, left ear (Acute) Ovarian cyst, complex (Acute) Encounter for screening examination for sexually transmitted disease (Acute) Bulky or enlarged uterus (Acute) Perimenopause (Acute) Abnormal uterine bleeding (AUB) (Acute) Vaccine for tetanus toxoid (Acute) Colon cancer screening (Acute) Breast cancer screening by mammogram (Acute) Pap smear for cervical cancer screening (Acute) History of IBS (Acute) Anxiety (Acute) Normal physical examination, routine (Acute) Laboratory tests ordered as part of a complete physical exam (CPE) (Acute) Past Medical History Medical History HPV (human papilloma virus) anogenital infection Anxiety History of IBS Family History Family History (Updated 05/23/25 @ 08:11 by ARAM Fu) Mother Diabetes Mini stroke Maternal Aunt Colon cancer Sister Colon cancer Surgical History Surgical History Hx of colonoscopy (~2012) Social History Social History Housing: Apartment Are you a primary healthcare technician to a significant other at home: No Do you presently have visiting nurse or other home services: No Patient Tobacco Use Status: Never used Tobacco e-Cigarette/Vaping Use: Never Used Second Hand Smoke Exposure: No Have you been hit, kicked, punched, or otherwise hurt by someone within the past year? 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 Current occupational exposures/hazards: No Cognitive needs: No Hearing needs: No Vision needs: Yes Meds Allergies Allergy/AdvReac Type Severity Reaction Status Date / Time No Known Allergies Allergy Verified 06/30/25 11:10 Home Medications ?Medication ?Instructions ?Recorded ?Confirmed ?Last Taken ?Type No Known Home Meds 06/30/25 06/30/25 Unknown History Assessment and Plan Assessment Anesthesia Assessment: Chart Reviewed Documented by User: Ro Monzon DO 06/30/25 11:42 PMFSH Past Medical History Medical History HPV (human papilloma virus) anogenital infection Anxiety History of IBS Family History Family History (Updated 05/23/25 @ 08:11 by ARAM Fu) Mother Diabetes Mini stroke Maternal Aunt Colon cancer Sister Colon cancer Family history of problems with anesthesia: No Surgical History Surgical History Hx of colonoscopy (~2012) History of Problems with Anesthesia: No Social History Social History Housing: Apartment Are you a primary healthcare technician to a significant other at home: No Do you presently have visiting nurse or other home services: No Patient Tobacco Use Status: Never used Tobacco e-Cigarette/Vaping Use: Never Used Second Hand Smoke Exposure: No Have you been hit, kicked, punched, or otherwise hurt by someone within the past year? 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 Current occupational exposures/hazards: No Cognitive needs: No Hearing needs: No Vision needs: Yes Meds Allergies Allergy/AdvReac Type Severity Reaction Status Date / Time No Known Allergies Allergy Verified 06/30/25 11:10 Home Medications ?Medication ?Instructions ?Recorded ?Confirmed ?Last Taken ?Type No Known Home Meds 06/30/25 06/30/25 Unknown History Exam Exam Date and Time: 06/30/25 1140 Height,Weight and Vital Signs: Height 4 ft 10 in Weight 51 kg Vital Signs Temperature 97.9 F 06/30/25 11:07 Pulse Rate 90 06/30/25 11:07 Respiratory Rate 18 06/30/25 11:07 Blood Pressure 116/67 06/30/25 11:07 Pulse Oximetry 98 06/30/25 11:07 Oxygen Delivery Method Room Air 06/30/25 11:07 Temperature 97.9 F 06/30/25 11:07 Pulse Rate 90 06/30/25 11:07 Respiratory Rate 18 06/30/25 11:07 Blood Pressure 116/67 06/30/25 11:07 Pulse Oximetry 98 06/30/25 11:07 Oxygen Delivery Method Room Air 06/30/25 11:07 Airway Mallampati Class: II TM Dist: >3cm Neck ROM: Full Loose/Missing/Broken Teeth: No (patient denies any loose or broken teeth) Heart: S1S2 Lungs: CTAB Assessment and Plan Assessment Anesthesia Assessment: Anesthesia Plan Discussed and Chart Reviewed Final Anesthetic Review Family History of Problems with Anesthesia: No History of Problems with Anesthesia: No NPO: Yes ASA Class: II Final Preanesthetic Review: No Changes in Pt Med Stat, Meds/Allgs Chart Reviewed, Consent Obtained/Reviewed and Anes Risks/Benef Reviewed Patient Risk: Low Procedure Risk: Low Anesthetic Plan Anesthetic Plan: MAC: and Agree w/ Assess. and Plan Disposition: Standard PACU
--- NOTE | 2025-06-30 12:33 | P.OPN-COLO_ITS ---
Colonoscopy Operative Note Operative Note Date of Service: 06/30/25 Narrative: COLONOSCOPY TILL CECUM WITH BIOPSIES Pre-op diagnosis: Colon cancer screening, family history of colon cancer (half sister in her 40's and maternal aunt) Post-op diagnosis:? Diverticulosis, hemorrhoids Endoscopist:? Dayna Almazan MD Anesthesia:?MAC Consent: Indications for the procedure and potential complications of bleeding, perforation, reaction to medications and missed diagnosis were discussed with the patient and informed consent was obtained. Instrument: Olympus PCF H 190 L variable stiffness pediatric colonoscope Monitoring: Vital signs and clinical assessment, intermittent blood pressure monitoring, continuous EKG monitoring, Pulse oximetry and Carbon Dioxide monitoring were done throughout the procedure. Please see anesthesia flowsheet. Colon withdrawl time was 17 minutes. Procedure: The patient was placed in the left lateral decubitis position and pre-procedure medications were administered. After a digital rectal examination of the ano-rectum, the video colonoscope was inserted into the rectum and advanced through the colon to the cecum. The colonoscope was slowly withdrawn in a retrograde panoramic fashion and the colon mucosa was carefully examined including a retroflexed view of the rectum. Findings and interventions are described below. Procedure Difficulty: Colon was long and tortuous and there was some loop formation Findings: Terminal Ileum: Not evaluated Cecum: Normal Ascending Colon: Normal Transverse Colon: Normal Descending Colon: Moderate diverticulosis Sigmoid Colon: Moderate diverticulosis Rectum: Normal Ano-rectum: Small internal hemorrhoids and hypertrophied anal papillae Colon preparation: Excellent after some irrigation. [place] Bowel Preparation Scale Right colon; 3 Transverse colon: 3 Left colon; 3 (0 = Unprepared colon segment with mucosa not seen due to solid stool that cannot be cleared. 1 = Portion of mucosa of the colon segment seen, but other areas of the colon segment not well seen due to staining, residual stool and/or opaque liquid. 2 = Minor amount of residual staining, small fragments of stool and/or opaque liquid, but mucosa of colon segment seen well. 3 = Entire mucosa of colon segment seen well with no residual staining, small fragments of stool or opaque liquid) Impression and Post Procedure Diagnosis: Colonoscopy Findings: No polyps were detected Random biopsies were obtained from right and left colon to rule out microscopic colitis Moderate diverticulosis seen in the left colon Small hemorrhoids on retroflexed exam. Plan: Pt has a FU appointment on 08/08/25 with Soledad Reyes NP Repeat Colonoscopy in 5 years if colon biopsies are normal (due to positive family hx of colon cancer). Above findings were reviewed with the patient and relevant handouts were given and the discharge area.
[2025-06-30 13:02] VITALS: BP 106/47; PULSE 85; RESP 16; TEMP 36.1; O2SAT 98
[2025-06-30 13:09] VITALS: BP 117/51; PULSE 80; RESP 16; TEMP 36.1; O2SAT 99
== END 2025-06-30 13:26 | disposition home or self-care (01) ==
PROVIDERS: Nurse Practitioner; PCP Nurse Practitioner Family; Visit Provider Internal Medicine Gastroenterology
PROC: 0DJD8ZZ Inspection of Lower Intestinal Tract, Via Natural or Artificial Opening Endoscopic (ICD-10-PCS; CPT 45378; principal; 2025-06-30 13:00)
DX: Z12.11 Encounter for screening for malignant neoplasm of colon (principal); Z80.0 Family history of malignant neoplasm of digestive organs; K58.9 Irritable bowel syndrome, unspecified; R14.0 Abdominal distension (gaseous); K64.8 Other hemorrhoids; K57.30 Diverticulosis of large intestine without perforation or abscess without bleeding
CPT/HCPCS: 45380; 81025; 88305; J2704

== ENCOUNTER → 2025-06-30 10:22 | Outpatient (BNV) | payer OTHER, SELFPAY | PROVIDERS: PCP Nurse Practitioner Family; Visit Provider Internal Medicine Gastroenterology | DX: Z12.11 Encounter for screening for malignant neoplasm of colon (principal); Z80.0 Family history of malignant neoplasm of digestive organs; K57.90 Diverticulosis of intestine, part unspecified, without perforation or abscess without bleeding; K64.8 Other hemorrhoids | CPT/HCPCS: 45378 ==

== ENCOUNTER 2025-07-30 15:47 | Outpatient (REF) | payer SELFPAY ==
--- OUTSIDE RECORDS SUMMARY | 2025-07-30 18:41 | XMS_ITS | Clinical Summary ---
Author Organization [employer] Address [address] [place] [address] Care Team Providers Care Restaurant Delivery Driver Name Role Phone Yon Prasad Primary Care Provider [phone] Allergies No known active allergies Medications No [...] 12/04/2007 Mammogram 2017 COVID-19 Vaccine ( - 2024-2 6 season) 2025 Influenza Vaccine (#1) 2025 Zoster [...] to complete this topic Insurance [facility] DUAL PLAN [facility] GOLD [place] [id number] Care Teams Restaurant Delivery Driver Relationship Specialty Start Date End Date Osmar, Kartik [address] [place] [address] PCP - General 04/11/24
[2025-07-30 19:04] LABS: Cholesterol 198 mg/dL (<200); HDL Cholesterol 61 mg/dL (>40); Triglycerides 102 mg/dL (<150)
== END 2025-07-30 15:48 | disposition home or self-care (01) ==
LOC: HO.WFDLDS 15:47
PROVIDERS: Visit Provider Nurse Practitioner Family
DX: E78.00 Pure hypercholesterolemia, unspecified (principal)
CPT/HCPCS: 36415; 80061

== ENCOUNTER 2025-08-05 14:01 | Outpatient (AMB) | payer BC, SELFPAY ==
--- NOTE | 2025-08-05 13:34 | A.OFFPC_ITS ---
Intake Visit Reasons: Tele 2 mos hypercholesterolemia Intake Note: patient here for 2 month follow up on Hypercholesterolemia Signal Inspector Required: No Is last menstrual period known: Yes Last menstrual period: 05/29/25 Post menopausal: No Patient : No Allergies No Known Allergies Allergy (Verified 08/05/25 13:35) Tobacco use date assessed: 08/05/25 Dental Screening Dental Screen Date: 08/05/25 Did you have a dental visit in the last 12 months?: Yes Did you have a dental problem in the last 6 months where you did not have access to dental care?: No Was dental information given to patient?: Patient has dentist HPI HPI Comments History of Present Illness Details 49-year-old female presents for hypercho lesterolemia follow-up. She admits to making healthy dietary choices. She is active but has not been exercising. She offers no complaints and denies acute symptoms at this time. [facility] Medical History HPV (human papilloma virus) anogenital infection Anxiety History of IBS Surgical History Hx of colonoscopy (~2012) Family History (Updated 05/23/25 @ 08:11 by ARAM Fu) Mother Diabetes Mini stroke Maternal Aunt Colon cancer Sister Colon cancer Social History Housing: Apartment Are you a primary patient care manager to a significant other at home: No Do you presently have visiting nurse or other home services: No Patient Tobacco Use Status: Never used Tobacco e-Cigarette/Vaping Use: Never Used Second Hand Smoke Exposure: No Patient : No service: No Current occupational status: employed 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 Chad Valerio, Michelle Sanches, Scotty Means and colleagues, with an educational avril from [employer]. Review of Systems Const Details: Denies chills, Denies fatigue, Denies fever(s), Denies headache(s) and Denies weakness Cardiac Denies chest pain, Denies claudication, Denies leg edema, Denies lightheadedness, Denies palpitations, Denies dyspnea, Denies dyspnea on exertion, Denies orthopnea and Denies other (Loss of consciousness) Resp Denies cough, Denies excessive phlegm production, Denies dyspnea, Denies dyspnea on exertion, Denies snoring and Denies wheezing Physical exam (Primary Care) Tobacco/Smoking Status: Tobacco use Status Tobacco use date assessed 08/05/25 08/05/25 13:35 Patient Tobacco Use Status Never used Tobacco 08/05/25 13:35 e-Cigarette/Vaping Use Never Used 08/05/25 13:35 Thrive Assessment: Date of Thrive Assessment Date Thrive assessed 05/18/25 08/05/25 13:35 Const Other: Patient is alert and oriented x4 Telehealth Telehealth Telehealth Platform: Telephone Location of provider rendering services: practice address Location of patient: address on file Patient Identification confirmed using: Name, : Yes Telehealth method: voice only Patient verbally consented to treatment: Yes Patient verbally consented to billing insurance company: Yes Patient informed of any privacy concerns related to visit: Yes Coding Level of Care Code Tele Est Pt Level 3 (31704) Diagnoses Hypercholesterolemia E78.00 Time Spent (min) 10 Assessment & Plan Assessment & Plan (1) Hypercholesterolemia: Code(s): E78.00 - Pure hypercholesterolemia, unspecified Category: Medical Plan: Recent LDL level is slightly elevated, 117, previous level was 126; triglycerides, total cholesterol, and HDL levels are normal. Advised to limit foods high in saturated fat and avoid foods high in trans fat. Routine exercise encouraged. Fast for 10-12 hours, may drink water, and perform lipid panel blood work a few days before next visit. Follow-up in 2-3 months for transfer of care with a new provider within the practice. Return sooner with symptoms or concerns. Verbalized understanding and agreed with the plan. Orders: Orders Lipid Panel 2 Months E78.00 - Pure hypercholesterolemia, unspecified
--- OUTSIDE RECORDS SUMMARY | 2025-08-05 20:01 | XMS_ITS | Clinical Summary ---
Author Organization [employer] Address [address] [place] [address] Care Team Providers Care High Risk Case Manager Name Role Phone Yon Prasad Primary Care Provider [phone] Allergies No known active allergies Medications No [...] to complete this topic Insurance [facility] MED [facility] DUAL PLAN [facility] GOLD [place] [id number] Care Teams High Risk Case Manager Relationship Specialty Start Date End Date Osmar, Kartik [address] [place] [address] PCP - General 04/11/24
== END 2025-08-05 16:17 | disposition home or self-care (01) ==
LOC: HO.HMCFM 14:02
PROVIDERS: PCP Nurse Practitioner Family; Visit Provider Nurse Practitioner Family
DX: E78.00 Pure hypercholesterolemia, unspecified (principal)